=== PATIENT | male | born 1940 | race Two or more races ===

== ENCOUNTER 2021-10-10 14:56 | Inpatient (IN) | payer MEDICARE ==
[~2021-10-10] VITALS: Ht 170.2 cm; Wt 58.5 kg
--- NOTE | 2021-10-10 15:30 | NUR ---
GPS/RN RECEIVED PT FROM [facility] ON 5150 FOR GD. REPORTEDLY REFUSED TO EAT AT FACILITY . AMBULATORY, VSS. NO ACUTE DISTRESS NOTED. REFUSED TO SIGN CONSENTS. ON FACE TO FACE ASSESSMENT NO SI OR HI REPORTED, HOWEVER PT IS PARANOID REGARDING PSYCHOTROPIC MEDICATIONS. ADMITTING ORDERS FROM [facility] [employer] PROJECT LEAD RECEIVED AND CARRIED OUT. DR RAI MADE AWARE OF ADMISSION
[2021-10-10] MEDS ORDERED: PANT40TA49 PO (15:31)
[2021-10-10] MEDS ORDERED: ROSU20TA32 PO (15:31)
[2021-10-10 15:54] VITALS: BP 131/88
[2021-10-10 16:00] VITALS: BP 131/88
[2021-10-10] MEDS ORDERED: MAG HYDROX/AL HYDROX/SIMETH 30 ML UDC PO PRN (16:00)
[2021-10-10] MEDS ORDERED: ACETAMINOPHEN 325 MG TABLET PO PRN (16:00)
[2021-10-10] MEDS ORDERED: LORAZEPAM 0.5 MG TABLET PO PRN (16:00)
[2021-10-10] MEDS ORDERED: TEMAZEPAM 7.5 MG CAPSULE PO PRN (16:00)
[2021-10-10] MEDS ORDERED: MAGNESIUM HYDROXIDE 30 ML UDC PO PRN (16:00)
--- NOTE | 2021-10-10 16:01 | NUR ---
GPS/RN PT REFUSED TO SIGN CONSENTS/ADMITTING PAPERWORK. PT IS ALERT ORIENTED X3 PARANOID REGARDING MEDICATIONS.
--- NOTE | 2021-10-10 17:52 | NUR ---
RN-NOTES VALERIO AGUAYO ( PSYCHIATRIST ) MADE AWARE OF PATIENT ADMISSION AND DR. RAI ( PLANER OFF BEARER) SEEN THE PATIENT IN THE UNIT.
[2021-10-10 19:52] VITALS: BP 138/89
[2021-10-10 20:31] VITALS: BP 138/89
[2021-10-10] MEDS: ATORVASTATIN 40 MG TABLET PO SCH (21:53)
--- NOTE | 2021-10-10 21:53 | NUR ---
GPS RN NOTE: MEDICATION REFUSAL PATIENT REFUSED LIPITOR 80 MG SCHEDULED X 3 DESPITE OF RISKS AND BENEFITS EXPLANATIONS. PATIENT IS SUSPICIOUS AND DOES NOT WANT TO TAKE ANY MEDICINE.
[2021-10-11 07:14] LABS: ALBUMIN 3.3 g/dL (3.4-5.0); BILIRUBIN,DIRECT 0.2 mg/dL (0.0-0.2); BILIRUBIN,TOTAL 0.9 mg/dL (0.2-1.0); TOTAL PROTEIN, SERUM 6.4 g/dL (6.4-8.2)
[2021-10-11 07:20] LABS: ALBUMIN 3.3 g/dL (3.4-5.0); BILIRUBIN,TOTAL 0.9 mg/dL (0.2-1.0); POTASSIUM 3.8 mmol/L (3.5-5.1); TOTAL PROTEIN, SERUM 6.4 g/dL (6.4-8.2)
--- NOTE | 2021-10-11 07:55 | NUR ---
RN OPENING NOTES PATIENT AWAKE IN BED RESTING, A/O X 2-3, CONFUSED AT TIMES. NO S/S OF PAIN NOTED AT THIS TIME. ON ROOM AIR, NO DISTRESS OR SHORTNESS OF BREATH NOTED. AMBULATORY BUT UNSTEADY GAIT, FALL RISK, NEEDS 1 PERSON STAND BY ASSISTANCE DURING AMBULATION. FALL AND SAFETY MEASURES IN PLACE, BED ALARM ON, BED IN LOW AND LOCK POSITION, CALL LIGHT AND TABLE WITHIN EASY REACH, SIDE RAILS UP X2. WILL CONTINUE TO MONITOR FOR SAFETY AND BEHAVIOR.
[2021-10-11 08:00] VITALS: BP_SYST 107; BP_SYST 135; BP_DIAS 67; BP_DIAS 87
[2021-10-11 08:07] LABS: THYROID STIMULATING HORMONE 1.375 uIU/mL (0.358-3.74)
[2021-10-11] MEDS: ASPIRIN EC 81 MG TABLET.DR PO SCH (09:43)
[2021-10-11] MEDS: PANTOPRAZOLE 40 MG TABLET.DR PO SCH (09:43)
[2021-10-11] MEDS: BLOOD SUGAR DIAGNOSTIC 1 EACH STRIP IN SCH (16:44)
--- NOTE | 2021-10-11 18:53 | NUR ---
RN CLOSING NOTES PATIENT AWAKE IN BED RESTING, A/O X 2-3, CONFUSED AT TIMES. NO S/S OF PAIN NOTED AT THIS TIME. ON ROOM AIR, NO DISTRESS OR SHORTNESS OF BREATH NOTED. ALL SCHEDULE MEDICATIONS ADMINISTERED. ALL NEEDS ATTENDED AND ANTICIPATED. AMBULATORY BUT UNSTEADY GAIT, FALL RISK, NEEDS 1 PERSON STAND BY ASSISTANCE DURING AMBULATION. FALL AND SAFETY MEASURES IN PLACE, BED ALARM ON, BED IN LOW AND LOCK POSITION, CALL LIGHT AND TABLE WITHIN EASY REACH, SIDE RAILS UP X2. WILL ENDORSE TO SUPERVISOR CONCRETE [employer].
--- NOTE | 2021-10-11 19:30 | NUR ---
GPS RN NOTES PATIENT IN HIS ROOM RESTING COMFORTABLY. ALERT AND ORIENTED X2, NO S/S OF ACUTE DISTRESS NOTED. PATIENT IS CALM, COOPERATIVE TO CARE, DEPRESSED AND ISOLATIVE. ENCOURAGED PATIENT TO ATTEND IN GROUP ACTIVITIES. VERBALIZATION OF FEELINGS ENCOURAGED. DENIES SI/HI/AVH AT THIS TIME. SAFETY PRECAUTIONS IN PLACE. WILL CONTINUE TO MONITOR Q15MIN ROUNDS FOR SAFETY AND BEHAVIOR.
[2021-10-11 20:27] VITALS: BP 120/90
[2021-10-11] MEDS: ATORVASTATIN 40 MG TABLET PO SCH (21:19)
[2021-10-12 08:00] VITALS: BP 125/83
[2021-10-12] MEDS: ESCITALOPRAM OXALATE (10 MG) 10 MG TABLET PO SCH (08:05)
[2021-10-12] MEDS: ASPIRIN EC 81 MG TABLET.DR PO SCH (08:05)
[2021-10-12] MEDS: PANTOPRAZOLE 40 MG TABLET.DR PO SCH (08:05)
[2021-10-12] MEDS: BLOOD SUGAR DIAGNOSTIC 1 EACH STRIP IN SCH (09:47)
--- NOTE | 2021-10-12 10:48 | NUR ---
TATO Initial Discharge Plan: Pt currently resides at [address] [facility] [address] [place] [id number]. Pt stated that he would want to go to a nursing facility. Pt does not have any supportive contact at this time. TATO will work with the MD and treatment team to help coordinate appropriate discharge.
--- NOTE | 2021-10-12 10:48 | NUR ---
SW Admit Source: Pt placed on a 5150 hold for GD. Pt was not eating or taking medications at home for a week. Pt currently resides at [address] [place] [address]. Pt stated that he would want to go to a nursing facility. Pt does not have any supportive contact at this time.
--- NOTE | 2021-10-12 14:38 | NUR ---
Coordination of Care: Wilfrido ([phone]) and Samantha ([phone]) family preservation caseworker who are involved in patient's care and would want to be notified. they stated pt is currently residing at a Independent Living apartment building but does not have the appropriate care at home. They stated that they need to apply [facility] caregiver for pt before pt returns back home. They stated pt would need a nursing facility before pt would transition back home.
--- NOTE | 2021-10-12 15:10 | NUR ---
Individual Counseling: SW met with pt. bedside. The pt. is alert & oriented x 3 with depressed mood & fat affect. The pt. expressed feelings of sadness, loneliness. SW explored patient's support system. Pt. stated he only has one family member who lives far away and has not spoken to them recently. SW used motivational interviewing, validated patient's feeling and encouraged pt. to go out into activity room and socialize. Pt. stated "I will try to".
[2021-10-12 16:00] VITALS: BP 129/87
[2021-10-12 20:34] VITALS: BP 124/75
[2021-10-12] MEDS: ATORVASTATIN 40 MG TABLET PO SCH (21:31)
[2021-10-13 08:00] VITALS: BP 140/92
[2021-10-13] MEDS: PANTOPRAZOLE 40 MG TABLET.DR PO SCH (10:41)
[2021-10-13] MEDS: ESCITALOPRAM OXALATE (10 MG) 10 MG TABLET PO SCH (10:41)
[2021-10-13] MEDS: ASPIRIN EC 81 MG TABLET.DR PO SCH (10:41)
--- NOTE | 2021-10-13 11:21 | NUR ---
Paper Cone Machine Operator Samantha ([phone]) employment case manager contacted for update. SW updated on pt's status.
--- NOTE | 2021-10-13 11:31 | NUR ---
TATO SNF Referral: TATO sent clinicals to Halle valdivia from [facility] ([phone]) for placement option. TATO sent H & P, progress notes, and medication list.
[2021-10-13] MEDS: BLOOD SUGAR DIAGNOSTIC 1 EACH STRIP IN SCH (11:57)
[2021-10-13 16:00] VITALS: BP 109/67
--- NOTE | 2021-10-13 16:40 | NUR ---
KEEPING TO SELF,VERY ISOLATIVE.
--- NOTE | 2021-10-13 19:55 | NUR ---
GPS RN NOTES: RECEIVED PATIENT PACING IN ROOM. A/O X2. ANXIOUS, RESTLESS, PARANOID, DISORGANIZED, DISORIENTED. ASKING STAFF IF HE CAN LEAVE BECAUSE PEOPLE ARE AFTER HIM. REPEATEDLY COMING TO NURSE AND STATING HIS LIFE IS IN DANGER AND THAT HE WAS TOLD HE CAN LEAVE TONIGHT. PATIENT REORIENTED TO PRESENT SITUATION AND REASSURED OF HIS SAFETY. NO S/S OF ACUTE DISTRESS. RESPIRATION EVEN AND UNLABORED WITH EQUAL RISE AND FALL OF THE CHEST, ON ROOM AIR. OFFERED FLUID AND SNACKS TOLERATED. WILL CONTINUE TO MONITOR Q15 FOR MOOD, SAFETY AND BEHAVIOR.
[2021-10-13 20:00] VITALS: BP 120/79
[2021-10-13] MEDS: ATORVASTATIN 40 MG TABLET PO SCH (21:28)
--- NOTE | 2021-10-13 21:38 | NUR ---
GPS RN NOTES: PATIENT IS ANXIOUS, RESTLESS, PACING AND ASKING TO LEAVE. REFUSING REDIRECTION. ATIVAN 0.5MG GIVEN PO AT 2127. WILL CONTINUE TO MONITOR.
--- NOTE | 2021-10-14 07:10 | NUR ---
GPS RN CLOSING NOTES: PATIENT IS CURRENTLY SLEEPING. PATIENT SLEPT 7HR THIS SHIFT. NO S/S OF DISTRESS NOTED. RESPIRATION EVEN AND UNLABORED WITH EQUAL RISE AND FALL OF THE CHEST, ON ROOM AIR. ALL PATIENT CARE NEEDS HAVE BEEN MET ANTICIPATED. BED IN LOW LOCKED POSITION, SIDE RAILS UP X2 FOR SAFETY. CALL [place] WITHIN REACH. WILL CONTINUE TO MONITOR AND ENDORSE TO AM SHIFT.
[2021-10-14 08:00] VITALS: BP 121/81
[2021-10-14] MEDS: BLOOD SUGAR DIAGNOSTIC 1 EACH STRIP IN SCH (08:23)
[2021-10-14] MEDS: PANTOPRAZOLE 40 MG TABLET.DR PO SCH (08:24)
[2021-10-14] MEDS: ESCITALOPRAM OXALATE (10 MG) 10 MG TABLET PO SCH (08:24)
[2021-10-14] MEDS: ASPIRIN EC 81 MG TABLET.DR PO SCH (08:24)
--- NOTE | 2021-10-14 12:57 | NUR ---
RN-CO: PATIENT IS AWAKE, EATING. HE IS READING BOOKS, COMPLIANT WITH MEDICATIONS. UNKEMPT AND DISHEVELED. HE IS COOPERATIVE AND COMPLIANT WITH MEDICATIONS. SUSPICIOUS AT TIMES. HE NEEDS ASSISTANCE WITH Adl due TO PERIODS OF CONFUSION AND AGE.I WILL CONTINUE TO MONITOR.
[2021-10-14 16:00] VITALS: BP 150/92
--- NOTE | 2021-10-14 19:51 | NUR ---
GPS RN OPENING NOTES: RECEIVED PATIENT IN BED. A/O X2. FLAT AFFECT, WITHDRAWN, PASSIVE, GUARDED, DISORGANIZED, DISORIENTED, ENCOURAGED TO VERBALIZE FEELINGS. NO S/S OF ACUTE DISTRESS. RESPIRATION EVEN AND UNLABORED WITH EQUAL RISE AND FALL OF THE CHEST, ON ROOM AIR. OFFERED FLUID AND SNACKS TOLERATED. WILL CONTINUE TO MONITOR Q15 FOR MOOD, SAFETY AND BEHAVIOR.
[2021-10-14 20:00] VITALS: BP 142/91
[2021-10-14] MEDS: ATORVASTATIN 40 MG TABLET PO SCH (22:00)
--- NOTE | 2021-10-14 22:43 | NUR ---
GPS RN NOTES: PATIENT REFUSED 2200 LIPITOR. PER PATIENT "I DON'T WANT IT". WILL NOT GIVE REASON.
[2021-10-15 08:00] VITALS: BP 150/90
[2021-10-15] MEDS: BLOOD SUGAR DIAGNOSTIC 1 EACH STRIP IN SCH (08:10)
[2021-10-15] MEDS: ASPIRIN EC 81 MG TABLET.DR PO SCH ×2 (08:16→08:28)
[2021-10-15] MEDS: ESCITALOPRAM OXALATE (10 MG) 10 MG TABLET PO SCH ×2 (08:16→09:00)
[2021-10-15] MEDS: PANTOPRAZOLE 40 MG TABLET.DR PO SCH ×2 (08:16→08:28)
--- NOTE | 2021-10-15 09:25 | NUR ---
TATO SNF Contact: TATO Spoke with Halle valdivia from [facility] ([phone]) who stated pt is accepted.
--- NOTE | 2021-10-15 09:25 | NUR ---
TATO Family Contact: TATO received a call from patient's sister Vilma ([phone]) who stated that she lives in [facility] and is minimally involved in his case. She expressed that she believes that pt is not capable of taking care of himself. TATO discussed treatment and discharge plan.
--- NOTE | 2021-10-15 09:40 | NUR ---
RN- CO: PATIENT IS AWAKE, DENIED PAIN AND DISCOMFORTS. RESPIRATION EVEN AND UNLABORED. PATIENT REFUSED ALL HIS MEDICATIONS IN AM, EVEN WITH DISCUSSING BENEFITS. I WILL TRY AGAIN LATER TO ENCOURAGE HIM. HE IS ISOLATIVE AND DEPRESSED. HE USSUALLY STAYS ON BED AND READ BOOKS BUT HE IS UP FOR NEEDS.
--- NOTE | 2021-10-15 11:17 | NUR ---
APS production worker: SW received a call from APS case management director Park ([phone]) who stated that pt has an open case and that pt is unable to live at home alone, he does not have the appropriate resources at home and recommended a nursing facility.
[2021-10-15 16:00] VITALS: BP 115/87
[2021-10-15 20:00] VITALS: BP 140/96
[2021-10-15] MEDS: ATORVASTATIN 40 MG TABLET PO SCH ×2 (21:33→21:53)
--- NOTE | 2021-10-16 05:27 | NUR ---
RN - NOTES: ALERT ORX2 APPEARS DEPRESSED LYING IB BED ISOLATIVE OFFERED JUICE WATER SNACK HE REFUSED MY OFFERS HE REFUSED SLEEPING PILL AND LIPITOR LAST NIGHT OFFERED THE RESTORIL X2
[2021-10-16 08:00] VITALS: BP 126/94
--- NOTE | 2021-10-16 08:00 | NUR ---
Court Notification: SW contacted patient's sister Vilma ([phone]) to notify of 4216 hearing is today and left a voicemail.
[2021-10-16] MEDS: PANTOPRAZOLE 40 MG TABLET.DR PO SCH (09:00)
[2021-10-16] MEDS: ESCITALOPRAM OXALATE (10 MG) 10 MG TABLET PO SCH (09:00)
[2021-10-16] MEDS: ASPIRIN EC 81 MG TABLET.DR PO SCH (09:00)
--- NOTE | 2021-10-16 09:34 | NUR ---
Individual Counseling: SW met with pt. bedside. The pt. appeared with depressed mood and flat affect. Pt was blankly staring at this fiction and nonfiction writer prose and was not responding. SW attempted to encourage pt to participate and engage. Pt refused and was not responding to this fiction and nonfiction writer prose.
--- NOTE | 2021-10-16 09:36 | NUR ---
RN-NOTES PATIENT REFUSED ALL 0900AM MEDICATIONS DESPITE ENCOURAGEMENT AND EXPLANATIONS OF THE RISK AND BENEFITS. OFFERED X3
--- NOTE | 2021-10-16 14:00 | NUR ---
Court Hearing: Patient's court hearing was today and it was upheld for GD.
--- NOTE | 2021-10-16 14:37 | NUR ---
Pt. with probable cause hearing with the hearing referee, pts. advocate and hospital staff. Pt. did not attend the hearing and was upheld for the ground of GD.
--- NOTE | 2021-10-16 15:14 | NUR ---
RN-NOTES PATIENT IN BED INTERMITTENTLY SLEEPING WITH BREATHING EVEN AND NONLABORED EASILY AROUSED NO ACUTE DISTRESS NOTED. PATIENT NOTED WITH GUARDED,DEPRESSED MOOD,ENCOURAGED TO VERBALIZE FEELINGS AND CONCERN TO THE STAFF AND ATTEND GROUPS BUT PATIENT REFUSED TO TALK,PREFERS TO STAY IN HIS ROOM SLEEPING. ALL NEEDS ATTENDED AND ANTICIPATED. WILL CONT. MONITORING FOR SAFETY AND BEHAVIOR. WILL ENDORSE TO INCOMING SHIFT FOR CONTINUITY OF CARE.
[2021-10-16 16:00] VITALS: BP 119/88
--- NOTE | 2021-10-16 17:54 | NUR ---
RN-NOTES PATIENT REFUSED TO EAT BUT ABLE TO DRINK FLUID THIS SHIFT DESPITE ENCOURAGEMENT AND EXPLANATIONS OF THE RISK AND BENEFITS .FOOD WAS OFFERED X3
[2021-10-16 20:00] VITALS: BP 123/88
[2021-10-16] MEDS: ATORVASTATIN 40 MG TABLET PO SCH (22:00)
[2021-10-17 07:23] LABS: BASOPHILS % (AUTO) 0.3 % (0.0-2.0); EOSINOPHILS % (AUTO) 0.1 % (0.0-6.0); HEMATOCRIT 53 % (39-51); HEMOGLOBIN 17.8 g/dL (13.5-17.5); LYMPHOCYTES % (AUTO) 15.3 % (20.0-44.0); MEAN CORPUSCULAR HGB CONC 34 g/dl (31.0-36.0); MEAN CORPUSCULAR VOLUME 92 fL (80-96); MONOCYTES # (AUTO) 1.2 K/uL (0.1-1.30); MONOCYTES % (AUTO) 9.5 % (2.0-12.0); NEUTROPHILS # (AUTO) 9.6 K/uL (1.8-8.9); NEUTROPHILS % (AUTO) 74.8 % (43.0-81.0); PLATELET COUNT (AUTO) 238 K/uL (150-450); RED BLOOD CELL COUNT(AUTO) 5.74 MIL/uL (4.5-6.0); WHITE BLOOD COUNT (AUTO) 12.8 K/uL (4.3-11.0)
[2021-10-17 07:34] LABS: CALCIUM, SERUM 9.7 mg/dL (8.5-10.1); MAGNESIUM 2.2 mg/dL (1.8-2.4); PHOSPHORUS 4.1 mg/dL (2.5-4.9); POTASSIUM 3.9 mmol/L (3.5-5.1)
[2021-10-17 08:00] VITALS: BP 118/89
[2021-10-17] MEDS: ENSURE ENLIVE CHOC 237 ML CAN PO SCH ×2 (08:00→17:00)
[2021-10-17] MEDS: PANTOPRAZOLE 40 MG TABLET.DR PO SCH (09:00)
[2021-10-17] MEDS: ASPIRIN EC 81 MG TABLET.DR PO SCH (09:00)
[2021-10-17] MEDS: ESCITALOPRAM OXALATE (10 MG) 10 MG TABLET PO SCH (09:00)
--- NOTE | 2021-10-17 09:46 | NUR ---
RN-NOTES PATIENT REFUSED TO EAT BREAKFAST DESPITE ENCOURAGEMENT .ALL 0900AM MEDICATIONS WAS ALSO REFUSED DESPITE ENCOURAGEMENT AND EXPLANATIONS OF THE RISK AND BENEFITS. OFFERED X3
[2021-10-17] MEDS: VENLAFAXINE 37.5 MG TABLET PO SCH (10:30)
--- NOTE | 2021-10-17 10:45 | NUR ---
RN-NOTES PATIENT REFUSED EFFEXOR 3.75MG P.O DESPITE DR. RAMOS EXPLAINED TO THE PATIENT THE RISK AND BENEFITS. EDGE GLUER AND THE CHARGE NURSE DID ENCOURAGED TO COMPLY WITH THE MEDICATIONS AND TREATMENT BUT PATIENT STILL REFUSED. OFFERED X3
--- NOTE | 2021-10-17 12:38 | NUR ---
RN-CO: PATIENT'S RIGHTS HANDBOOK WAS GIVEN TO THE PATIENT, DISCUSSED AND ENCOURAGED TO ASK QUESTIONS.
--- NOTE | 2021-10-17 14:13 | NUR ---
RN-NOTES PATIENT IN BED INTERMITTENTLY SLEEPING WITH BREATHING EVEN AND NONLABORED EASILY AROUSED NO ACUTE DISTRESS NOTED.A/O X3,GUARDED ,QUIET.MINIMAL INTERACTIONS WITH THE STAFF. NON COMPLIANT WITH MEDICATIONS DESPITE ENCOURAGEMENT AND EXPLANATIONS RISK AND BENEFITS. STILL REFUSED TO EAT, DID DRINK WATER.WILL CONT. TO ENCOURAGED TO EAT AND DRINK. NEEDS MINIMAL ASSIST WITH ADL'S.ALL NEEDS ATTENDED AND ANTICIPATED. Q15 MINUTES MONITORING FOR SAFETY AND BEHAVIOR. WILL ENDORSE TO INCOMING SHIFT.
[2021-10-17 16:00] VITALS: BP 101/66
--- NOTE | 2021-10-17 19:03 | NUR ---
RN-NOTES T.O ORDER FROM DR. CORDOVA OF IV NS O.9% 1 LITER ONCE AND UA . NOTED AND CARRIED OUT.
--- NOTE | 2021-10-17 19:18 | NUR ---
RN-NOTES IV LINE ON RIGHT FA JUAN J 22 STARTED BY THE CHARGE NURSE WITH GOOD RETURN AND PATIENT TOLERATED WELL. WILL ENDORSE TO INCOMING NURSE FOR BEHAVIOR AND SAFETY MONITORING AND CONTINUITY OF CARE.
--- NOTE | 2021-10-17 19:25 | NUR ---
GPS RN NOTE IVF NS AT 125 ML/HR STARTED AT THIS TIME ORDERED BY MD, PATIENT IS TOLERATING THE IVF WELL. NO ACUTE DISTRESS NOTED. WILL CONTINUE TO MONITOR THE PATIENT CLOSELY FOR ANY CHANGE OF CONDITION.
[2021-10-17] MEDS ORDERED: IV NS 0.9% 1,000 ML IV ONE (19:30)
[2021-10-17 20:29] VITALS: BP 131/85
[2021-10-17] MEDS: ATORVASTATIN 40 MG TABLET PO SCH (21:56)
[2021-10-17] MEDS: MIRTAZAPINE 15 MG TABLET PO SCH (21:57)
--- NOTE | 2021-10-17 21:58 | NUR ---
RN NOTES: PT. REFUSED IMPLEMENTATION SPECIALIST PAYROLL SCHEDULE PO MEDICATIONS , LIPITOR AND REMERON REFUSED , ENCOURAGED X3 RISKS AND BENEFITS EXPLINED ,PT. STILL REFUSED,
--- NOTE | 2021-10-17 22:26 | NUR ---
RN NOTES: MEDICATION LIPITOR AND REMERON RETURNED BACK TO [employer], LIPITOR RETURNED 2 TABS IN [employer]oler[employer] , BUT BY ACCIDENTLY PRESS 1 IN [employer] , AND REMERON I TAB RETUNED TO [employer].
--- NOTE | 2021-10-18 | NUR ---
RN NOTES: COLLECTED URINE SPECIMEN AND SEND TO LAB.
[2021-10-18 00:31] LABS: BILIRUBIN,URINE SMALL (NEGATIVE); COLOR,URINE YELLOW (YELLOW); LEUKOCYTE ESTERASE ,URINE NEGATIVE (NEGATIVE); NITRITE, URINE NEGATIVE (NEGATIVE); PROTEIN,URINE NEGATIVE (NEGATIVE); UGLUCOSE NEGATIVE (NEGATIVE)
--- NOTE | 2021-10-18 03:33 | NUR ---
RN NOTE IVF NS AT 125 ML/HR 1,000 ML INFUSED AT THIS TIME ORDERED BY MD, PATIENT IS TOLERATING THE IVF WELL. NO ACUTE DISTRESS NOTED.
[2021-10-18 06:37] LABS: RBC,URINE 0-2 /HPF (0-2); WBC,URINE NONE SEEN /HPF (0-3)
[2021-10-18 06:38] LABS: BACTERIA,URINE Few /HPF (None Seen); SQUAMOUS EPITHELIAL CELL,UR None Seen /HPF (None Seen); URINE AMORPHOUS URATE Many /HPF (None Seen)
[2021-10-18 08:00] VITALS: BP 120/84
[2021-10-18] MEDS: ENSURE ENLIVE CHOC 237 ML CAN PO SCH ×2 (08:00→17:00)
[2021-10-18] MEDS: VENLAFAXINE 37.5 MG TABLET PO SCH (09:00)
[2021-10-18] MEDS: PANTOPRAZOLE 40 MG TABLET.DR PO SCH (09:00)
[2021-10-18] MEDS: ASPIRIN EC 81 MG TABLET.DR PO SCH (09:00)
[2021-10-18 16:00] VITALS: BP 130/88
--- NOTE | 2021-10-18 19:35 | NUR ---
RN NOTES RECEIVED PATIENT AWAKE ON BED, A/OX3, CALM, NOTIN DSITRESS, SAFETY MEASURES APPLIED, WILL CONTINUE TO MONITOR
[2021-10-18 19:53] VITALS: BP 126/84
[2021-10-18 19:54] VITALS: BP 126/84
[2021-10-18] MEDS: ATORVASTATIN 40 MG TABLET PO SCH (22:13)
[2021-10-18] MEDS: MIRTAZAPINE 15 MG TABLET PO SCH (22:14)
--- NOTE | 2021-10-19 06:43 | NUR ---
RN NOTES SLEEPING BUT AROUSABLE, MORNING CARE RENDERED, SAFETY MEASURES APPLIED PT. NEEDS ATTENDED
[2021-10-19 08:00] VITALS: BP 112/66
--- NOTE | 2021-10-19 08:00 | NUR ---
Court Notification: TATO contacted patient's sister Vilma ([phone]) to notify of 9900 hearing is today and left a voicemail. Addendum: 10/19/21 at 0802 by TATO COOK Wrong information.
[2021-10-19] MEDS: PANTOPRAZOLE 40 MG TABLET.DR PO SCH (08:32)
[2021-10-19] MEDS: ENSURE ENLIVE CHOC 237 ML CAN PO SCH ×2 (08:32→16:45)
[2021-10-19] MEDS: ASPIRIN EC 81 MG TABLET.DR PO SCH (08:32)
[2021-10-19] MEDS: VENLAFAXINE 37.5 MG TABLET PO SCH (08:33)
--- NOTE | 2021-10-19 11:05 | NUR ---
TATO Note: SW spoke with patient and explained that he is accepted at [facility]. He was agreeable of going to a facility to continue his treatment, he is afraid of going back home.
--- NOTE | 2021-10-19 11:06 | NUR ---
Adjunct Phlebotomy Instructor TATO contacted pt's case briefer Samantha ([phone]) and notified pt is accepted at [facility] and he was agreeable of this.
--- NOTE | 2021-10-19 11:08 | NUR ---
TATO Family Contact: SW contacted pt's sister Vilma ([phone]) and left a detailed voicemail that pt will be going to a nursing facility called [facility] to continue his treatment.
--- NOTE | 2021-10-19 15:50 | NUR ---
GPS RN NOTE: DR. ODONNELL NOTIFIED OF PATIENT CONDITION , PATIENT NOT EATING AND DRINKING HAS HEPLOCK ON HIS RIGHT ARM PER MD LEAVE HEPLOCK UNTIL TOMORROW LABS ORDERED FOR TOMORROW.
[2021-10-19 16:00] VITALS: BP 128/88
[2021-10-19 19:59] VITALS: BP 120/87
[2021-10-19] MEDS: ATORVASTATIN 40 MG TABLET PO SCH (21:31)
[2021-10-19] MEDS: MIRTAZAPINE 15 MG TABLET PO SCH (21:31)
[2021-10-20 07:05] LABS: BASOPHILS # (AUTO) 0.1 K/uL (0.0-0.2); BASOPHILS % (AUTO) 0.4 % (0.0-2.0); EOSINOPHILS % (AUTO) 0.3 % (0.0-6.0); HEMATOCRIT 56 % (39-51); HEMOGLOBIN 18.4 g/dL (13.5-17.5); LYMPHOCYTES # (AUTO) 2.2 K/uL (0.8-4.8); LYMPHOCYTES % (AUTO) 18.1 % (20.0-44.0); MEAN CORPUSCULAR HGB CONC 33 g/dl (31.0-36.0); MEAN CORPUSCULAR VOLUME 93 fL (80-96); MONOCYTES # (AUTO) 1.3 K/uL (0.1-1.30); MONOCYTES % (AUTO) 10.7 % (2.0-12.0); NEUTROPHILS # (AUTO) 8.8 K/uL (1.8-8.9); NEUTROPHILS % (AUTO) 70.5 % (43.0-81.0); PLATELET COUNT (AUTO) 196 K/uL (150-450); RED BLOOD CELL COUNT(AUTO) 5.99 MIL/uL (4.5-6.0); WHITE BLOOD COUNT (AUTO) 12.4 K/uL (4.3-11.0)
[2021-10-20 07:31] LABS: ALBUMIN 2.8 g/dL (3.4-5.0); BILIRUBIN,TOTAL 0.7 mg/dL (0.2-1.0); CALCIUM, SERUM 9.5 mg/dL (8.5-10.1); CREATININE 1.2 mg/dL (0.6-1.3); MAGNESIUM 2.3 mg/dL (1.8-2.4); PHOSPHORUS 3.6 mg/dL (2.5-4.9); POTASSIUM 3.8 mmol/L (3.5-5.1); TOTAL PROTEIN, SERUM 6.8 g/dL (6.4-8.2)
[2021-10-20 08:00] VITALS: BP 118/80
[2021-10-20] MEDS: ENSURE ENLIVE CHOC 237 ML CAN PO SCH (08:00)
--- NOTE | 2021-10-20 08:27 | NUR ---
Transfer Note: Patient will be transferred to medical floor due to poor oral intake. Dr. Griffith will continue the hold. Patient will be discharged to halfway facility [facility] [address] [facility], [place] [address]; ).Patients sister Vilma ([phone]) is notified. Pts case workers Wilfrido ([phone]) and Samantha ([phone]) is notified. Patient will continue to follow-up with (Psychiatrist) Dr. Griffith [address] [facility] [address], [place] [address]; ([phone]) and (Resource Program Teacher) Dr. Medina [address] [facility] [address], [place] [address]; ([phone]).
--- NOTE | 2021-10-20 08:29 | NUR ---
Family Contact and tent worker Contact: Patients sister Vilma ([phone]) is notified and left a detailed voicemail that pt will be transferred to medical floor. Pts rn field case manager Samantha ([phone]) is notified left a detailed voicemail that pt will be transferred to medical floor.
[2021-10-20] MEDS: ASPIRIN EC 81 MG TABLET.DR PO SCH (08:40)
[2021-10-20] MEDS: PANTOPRAZOLE 40 MG TABLET.DR PO SCH (08:40)
[2021-10-20] MEDS: VENLAFAXINE 37.5 MG TABLET PO SCH (08:40)
--- NOTE | 2021-10-20 09:00 | NUR ---
KETTLE COOK IN WELL DR. CHRISTIAN AND DUE TO POOR INTAKE AND WEAKNESS,DC NOT TO HAPPEN TODAY,TO BE TRANSFERRED TO [facility].
--- NOTE | 2021-10-20 10:59 | NUR ---
RN NOTE- SPOKE W BARREL RAISER 3W . WILL TRANSFER GPS OVERFLOW TO 309 AT 1400. 1:1 SITTER ALREADY STATIONED IN ROOM. 5250 HOLD TO STAY.
--- NOTE | 2021-10-20 14:20 | NUR ---
RN NOTE- PT DC TO MEDICAL FLOOR AT THIS TIME. VS STABLE. REPORT GIVEN
--- NOTE | 2021-10-20 14:30 | NUR ---
transferred via albert chair to med surg. floor.now to be readmitted and on 9380 hold.pt. with sureshter.report given to allen baer.original hold to new chart.belongings sent with pt.
[2021-10-20] MEDS ORDERED: LORA-259 PO (14:51)
[2021-10-20] MEDS ORDERED: ASPI-1420 PO (14:51)
[2021-10-20] MEDS ORDERED: MIRT-90 PO (14:51)
[2021-10-20] MEDS ORDERED: MAG30ORA PO (14:51)
[2021-10-20] MEDS ORDERED: TEMA15CA PO (14:51)
[2021-10-20] MEDS ORDERED: VENL25TA4 PO (14:51)
[2021-10-20] MEDS ORDERED: ATOR40TA PO (14:51)
[2021-10-20] MEDS ORDERED: LACT-246 PO (14:51)
[2021-10-20] MEDS ORDERED: ACET-868 PO (14:51)
== END 2021-10-20 14:20 | disposition short-term general hospital (02) | DRG 881 ==
LOC: GPS 14:56
PROVIDERS: ADMIT Nurse Practitioner Psychiatric/Mental Health; ATTEND Student in an Organized Health Care Education/Training Program
DX: F32.A Depression, unspecified (principal); E44.1 Mild protein-calorie malnutrition; E87.0 Hyperosmolality and hypernatremia; E86.0 Dehydration; I10 Essential (primary) hypertension; I25.10 Atherosclerotic heart disease of native coronary artery without angina pectoris; D72.829 Elevated white blood cell count, unspecified; E78.5 Hyperlipidemia, unspecified; E88.09 Other disorders of plasma-protein metabolism, not elsewhere classified; F41.9 Anxiety disorder, unspecified; Z59.00 Homelessness unspecified; Z95.5 Presence of coronary angioplasty implant and graft; Z68.20 Body mass index [BMI] 20.0-20.9, adult; R74.01 Elevation of levels of liver transaminase levels; Z20.822 Contact with and (suspected) exposure to COVID-19
CPT/HCPCS: 36415; 80048-TC; 80053-TC; 80061-TC; 80076-TC; 81001; 82962-TC; 83735-TC; 84100-TC; 84443-TC; 85025-TC; 87081-TC; J7030

== ENCOUNTER 2021-10-20 14:25 | Inpatient (IN) | payer MEDICARE ==
[~2021-10-20 14:25] MED LIST: PANT40TA49 PO; ROSU20TA32 PO
[2021-10-20] MEDS ORDERED: ACET-868 PO (14:51)
[2021-10-20] MEDS ORDERED: ASPI-1420 PO (14:51)
[2021-10-20] MEDS ORDERED: TEMA15CA PO (14:51)
[2021-10-20] MEDS ORDERED: MIRT-90 PO (14:51)
[2021-10-20] MEDS ORDERED: LACT-246 PO (14:51)
[2021-10-20] MEDS ORDERED: MAG30ORA PO (14:51)
[2021-10-20] MEDS ORDERED: ATOR40TA PO (14:51)
[2021-10-20] MEDS ORDERED: VENL25TA4 PO (14:51)
[2021-10-20] MEDS ORDERED: LORA-259 PO (14:51)
--- NOTE | 2021-10-20 14:55 | NUR ---
RN NOTE PATIENT RECEIVED FROM GPS, REPORT RECEIVED FROM KATIE PERKINS. PATIENT ON ROOM AIR WITH NO SIGNS OF LABORED BREATHING AT THIS TIME. PATIENT A&OX1, QUIET, AVOIDING EYE CONTACT. RIGHT FOREARM 22G SL IN PLACE, FLUSHING AND PATENT WITH NO SIGNS OF INFILTRATION. PATIENT ON A 5250 HOLD, PAPERWORK RECEIVED AND PLACED IN CHART. NO SIGNS OF ACUTE DISTRESS NOTED AT THIS TIME. BED LOCKED AND IN LOWEST POSITION, CALL LIGHT WITHIN REACH, 3 SIDE RAILS UP. GABBI [place]LANDO AT BEDSIDE.
[2021-10-20 14:59] VITALS: BP 119/78
--- NOTE | 2021-10-20 15:51 | NUR ---
RN NOTE PATIENT REFUSING TO TURN ON THE SIDE FOR SKIN INSPECTION ON HIS BACK, BUTTOCKS AND BACK OF THE LEGS. ONLY ABLE TO ASSESS ARMS AT THIS TIME PER PT REFUSAL. WILL TRY AGAIN LATER.
[2021-10-20 16:00] VITALS: BP 119/78
[2021-10-20] MEDS: IV LR 1000 ML 1,000 ML IV PRN (17:28)
[2021-10-20] MEDS: MEGESTROL ACETATE SUSP 400 MG/10 ML UDC PO SCH (17:30)
[2021-10-20] MEDS ORDERED: LORAZEPAM 0.5 MG TABLET PO PRN (17:30)
[2021-10-20] MEDS ORDERED: MAG HYDROX/AL HYDROX/SIMETH 30 ML UDC PO PRN (17:30)
[2021-10-20] MEDS ORDERED: ACETAMINOPHEN 325 MG TABLET PO PRN ×2 (17:30)
[2021-10-20] MEDS ORDERED: Z GUARD REMEDY 4 OZ OINT TP PRN (17:30)
--- NOTE | 2021-10-20 17:57 | NUR ---
RN NOTE PT REFUSING MEDICATION AT THIS TIME. PT AGREED ON IV FLUID, LR AT 85CC/HR INITIATED PER ORDER.
--- NOTE | 2021-10-20 18:53 | NUR ---
RN NOTE PATIENT REMAINS IN BED, RESTING, QUIET, REFUSING MEDICATION BUT OKAY WITH IV FLUID AT THIS TIME. RIGHT FA 22G IV IN PLACE RUNNING LR AT 85CC/HR. PT ON RA WITH NO SIGNS OF LABORED BREATHING AT THIS TIME. NO SIGNS OF ACUTE DISTRESS NOTED. BED LOCKED AND IN LOWEST POSITION, CALL LIGHT WITHIN REACH, 3 SIDE RAILS UP. SITTER AT BEDSIDE. WILL ENDORSE TO FLOORING MACHINE OPERATOR NURSE.
--- NOTE | 2021-10-20 19:30 | NUR ---
MS RN OPENING NOTE RECEIVED PT RESTING IN BED, EASILY AROUSABLE. A/O X 1-2. PT STABLE ON ROOM AIR. NO SOB OR S/S OF RESPIRATORY DISTRESS. BREATHING EVEN AND UNLABORED. IV ACCESS RFA 22 GAUGE RUNNING LR @ 85 ML/HR. SAFETY PRECAUTIONS IN PLACE. BED IN LOWEST LOCKED POSITION, HOB ELEVATED, SIDE RAILS UP X2, CALL LIGHT AND TABLE WITHIN REACH, AND SITTER AT BEDSIDE. ALL NEEDS MET AT THIS TIME.
[2021-10-20] MEDS: ENOXAPARIN SODIUM 40 MG/0.4 ML DISP.SYRIN SQ SCH (20:30)
[2021-10-20] MEDS: ATORVASTATIN 40 MG TABLET PO SCH (21:49)
[2021-10-20] MEDS: MIRTAZAPINE 15 MG TABLET PO SCH (21:49)
[2021-10-20] MEDS ORDERED: TEMAZEPAM 7.5 MG CAPSULE PO PRN (22:00)
[2021-10-21] MEDS: IV LR 1000 ML 1,000 ML IV PRN (04:45)
--- NOTE | 2021-10-21 06:38 | NUR ---
MS RN CLOSING NOTE PT RESTING IN BED, EASILY AROUSABLE. A/O X 1-2. PT STABLE ON ROOM AIR. NO SOB OR S/S OF RESPIRATORY DISTRESS. BREATHING EVEN AND UNLABORED. IV ACCESS RFA 22 GAUGE RUNNING LR @ 85 ML/HR. SAFETY PRECAUTIONS IN PLACE AT ALL TIMES. BED IN LOWEST LOCKED POSITION, HOB ELEVATED, SIDE RAILS UP X2, CALL LIGHT AND TABLE WITHIN REACH, AND SITTER AT BEDSIDE. ALL NEEDS MET AT THIS TIME AND WILL ENDORSE TO ONCOMING NURSE FOR MARCUS.
[2021-10-21 06:44] LABS: BASOPHILS # (AUTO) 0.1 K/uL (0.0-0.2); BASOPHILS % (AUTO) 0.6 % (0.0-2.0); EOSINOPHILS % (AUTO) 0.2 % (0.0-6.0); HEMATOCRIT 54 % (39-51); HEMOGLOBIN 17.9 g/dL (13.5-17.5); LYMPHOCYTES # (AUTO) 2.1 K/uL (0.8-4.8); LYMPHOCYTES % (AUTO) 20.9 % (20.0-44.0); MEAN CORPUSCULAR HGB CONC 33 g/dl (31.0-36.0); MEAN CORPUSCULAR VOLUME 93 fL (80-96); MONOCYTES # (AUTO) 0.8 K/uL (0.1-1.30); MONOCYTES % (AUTO) 8.5 % (2.0-12.0); NEUTROPHILS % (AUTO) 69.8 % (43.0-81.0); PLATELET COUNT (AUTO) 195 K/uL (150-450); RED BLOOD CELL COUNT(AUTO) 5.83 MIL/uL (4.5-6.0)
--- NOTE | 2021-10-21 07:15 | NUR ---
RN OPENING NOTES RECEIVED PATIENT RESTING IN BED, EASILY AROUSED. NO SIGNS OF ACUTE DISTRESS NOTED. ON ROOM AIR, TOLERATING WELL, NO SOB NOTED, BREATHING EVEN AND UNLABORED. NOTED WITH IV ACCESS ON RIGHT FOREARM #22G, INTACT AND PATENT WITH IVF OF LR @85 ML/HR INFUSING WELL. DENIES ANY PAIN AT THIS TIME. SAFETY MEASURE IN PLACE, BED IN LOWEST AND LOCKED POSITION, SR UP, CALL LIGHT PLACED WITHIN EASY REACH. WILL CONTINUE TO MONITOR.
[2021-10-21 07:23] LABS: CALCIUM, SERUM 9.4 mg/dL (8.5-10.1); CREATININE 1.2 mg/dL (0.6-1.3); MAGNESIUM 2.3 mg/dL (1.8-2.4); PHOSPHORUS 4.3 mg/dL (2.5-4.9); POTASSIUM 3.8 mmol/L (3.5-5.1)
[2021-10-21] MEDS ORDERED: PANTOPRAZOLE 40 MG TABLET.DR PO SCH (07:30)
--- NOTE | 2021-10-21 08:15 | NUR ---
Transfer Note: Patient will be transferred to medical floor due to poor oral intake. Dr. Griffith will continue the hold. Patient will be discharged to intermediate facility [facility] [address] [facility], [place] [address]; ).Patients sister Vilma ([phone]) is notified. Pts case workers Wilfrido ([phone]) and Samantha ([phone]) is notified. Patient will continue to follow-up with (Psychiatrist) Dr. Griffith [address] [facility] [address], [place] [address]; ([phone]) and (Procedures Nurse) Dr. Medina [address] [facility] [address], [place] [address]; ([phone]).
[2021-10-21] MEDS: ASPIRIN EC 81 MG TABLET.DR PO SCH (08:19)
[2021-10-21] MEDS: PANTOPRAZOLE 40 MG TABLET.DR PO SCH (08:19)
[2021-10-21] MEDS: MEGESTROL ACETATE SUSP 400 MG/10 ML UDC PO SCH ×2 (08:19→17:09)
[2021-10-21] MEDS: VENLAFAXINE 25 MG TABLET PO SCH (08:19)
[2021-10-21] MEDS: ENSURE ENLIVE 237 ML LIQUID (VANILLA) PO SCH ×2 (09:00→17:00)
--- NOTE | 2021-10-21 10:44 | NUR ---
WOUND CARE CONSULT: PT PRESENTS VERY THIN AND BONY WITH SOME DISCOLORATION ON RT ARM, PRESENT ON ADMISSION. RECOMMENDATIONS MADE FOR SKIN PROTECTION. DISCUSSED WITH NURSING STAFF. MD IN AGREEMENT WITH PLAN OF CARE.
[2021-10-21] MEDS ORDERED: MEGESTROL ACETATE SUSP 400 MG/10 ML UDC PO SCH (12:00)
--- NOTE | 2021-10-21 12:00 | NUR ---
RN NOTES MEGESTROL 400MG/10 ML NOT GIVEN @1200 (DUPLICATE ORDER). MEDICATION ALREADY GIVEN @0900 ORDERED. PHARMACY MADE AWARE REGRADING DUPLICATE ORDER.
[2021-10-21] MEDS: IV D5W 1,000 ML IV SCH (12:11)
[2021-10-21 12:24] LABS: ALBUMIN 2.7 g/dL (3.4-5.0); BILIRUBIN,DIRECT 0.2 mg/dL (0.0-0.2); BILIRUBIN,TOTAL 0.7 mg/dL (0.2-1.0); TOTAL PROTEIN, SERUM 6.5 g/dL (6.4-8.2)
--- NOTE | 2021-10-21 18:44 | NUR ---
RN CLOSING NOTES PATIENT SLEEPING IN BED, EASILY AROUSED. NO SIGNS OF ACUTE DISTRESS NOTED. REMAINS ON ROOM AIR, NO SOB NOTED, BREATHING EVEN AND UNLABORED. IV ACCESS ON RIGHT FOREARM #22G, INTACT AND PATENT WITH IVF OF P3AOROR @ 70ML/HR, INFUSING WELL. PATIENT REFUSED ALL MEALS IN SPITE OF ENCOURAGEMENT, ALSO REFUSED ENSURE. BUT ABLE TO TAKE ALL MEDS WITH WATER. SAFETY MEASURE MAINTAINED, BED IN LOWEST AND LOCKED POSITION, SR UP, CALL LIGHT PLACED WITHIN EASY REACH. WILL ENDORSE TO NEXT SHIFT FOR MARCUS.
--- NOTE | 2021-10-21 19:15 | NUR ---
MS RN OPENING NOTES RECEIVED PATIENT LAYING AWAKE IN BED. A/O X 2-3. PATIENT WITH REGULAR AND UNLABORED BREATHING ON ROOM AIR, TOLERATED WELL. NO SIGNS AND SYMPTOMS OF DISTRESS NOTED AT THIS TIME. NO COMPLAINS OF PAIN OR DISCOMFORT AT THIS TIME. IV ACCESS RFA G #22 INFUSING D5W @ 70 ML/HR. IV ACCESS PATENT AND INTACT. SAFETY PRECAUTIONS ENFORCED WITH BED LOCKED AND AT LOWEST POSITION. SIDERAILS UP X2. CALL LIGHT WITHIN REACH AT ALL TIMES. WILL CONTINUE TO MONITOR PATIENT.
[2021-10-21] MEDS: ENOXAPARIN SODIUM 40 MG/0.4 ML DISP.SYRIN SQ SCH (19:43)
[2021-10-21 20:00] VITALS: BP 121/78
[2021-10-21] MEDS: MIRTAZAPINE 15 MG TABLET PO SCH (21:06)
[2021-10-21] MEDS: ATORVASTATIN 40 MG TABLET PO SCH (21:06)
[2021-10-22] MEDS: IV D5W 1,000 ML IV SCH ×2 (01:32→15:16)
--- NOTE | 2021-10-22 07:01 | NUR ---
MS RN CLOSING NOTES PATIENT SLEEPING ASLEEP EASILY AROUSABLE IN BED. A/O X 2-3. PATIENT WITH REGULAR AND UNLABORED BREATHING ON ROOM AIR, TOLERATED WELL. NO SIGNS AND SYMPTOMS OF DISTRESS NOTED AT THIS TIME. NO COMPLAINS OF PAIN OR DISCOMFORT AT THIS TIME. IV ACCESS RFA G #22 INFUSING D5W @ 70 ML/HR. IV ACCESS PATENT AND INTACT. SAFETY PRECAUTIONS ENFORCED WITH BED LOCKED AND AT LOWEST POSITION. SIDERAILS UP X2. CALL LIGHT WITHIN REACH AT ALL TIMES. WILL ENDORSE CONTINUITY OF CARE TO DAY SHIFT NURSE.
--- NOTE | 2021-10-22 07:39 | NUR ---
RN OPENING NOTES Patient seen comfortably lying in bed, breathing even and unlabored, no shortness of breath, no apparent distress noted, denies any pain or discomfort at this time, no grimacing. Call light left within reach, safety precautions in place, brakes locked, side rails up X 2, will monitor closely for any changes.
[2021-10-22 08:00] VITALS: BP 114/80
[2021-10-22] MEDS: PANTOPRAZOLE 40 MG TABLET.DR PO SCH (08:50)
[2021-10-22] MEDS: VENLAFAXINE 25 MG TABLET PO SCH (08:50)
[2021-10-22] MEDS: MEGESTROL ACETATE SUSP 400 MG/10 ML UDC PO SCH ×2 (08:50→18:17)
[2021-10-22] MEDS: ASPIRIN EC 81 MG TABLET.DR PO SCH (08:50)
[2021-10-22] MEDS: ENSURE ENLIVE 237 ML LIQUID (VANILLA) PO SCH ×3 (09:00→18:18)
[2021-10-22 16:00] VITALS: BP 121/78
--- NOTE | 2021-10-22 19:32 | NUR ---
RN CLOSING NOTES Patient lying in bed, no apparent distress noted, no shortness of breath, breathing even and unlabored, no dizziness, no palpitations, no chest pain, remained afebrile, denies any pain or discomfort. Due medications given per MD order, and tolerated well. Patient has an order for IV fluids (D5W at 70ml/hr) for hydration, peripheral IV line on his right forearm, intact, flushing well, covered with dry dressings, no swelling, no redness, no c/o pain or discomfort at site. Kept clean and dry, all needs attended, aspiration precautions observed at all times, safety precautions in place, frequent visual checks done, repositioning done, patient has a 1:1 sitter for safety, brakes locked, side rails up X 2, call light left within reach.
[2021-10-22 20:30] VITALS: BP 104/71
--- NOTE | 2021-10-22 20:36 | NUR ---
RN OPENING NOTES Patient lying in bed, no apparent distress noted, no shortness of breath, breathing even and unlabored, no dizziness, no palpitations, no chest pain, remained afebrile, denies any pain or discomfort Patient has an order for IV fluids (D5W at 70ml/hr) for hydration, peripheral IV line on his right forearm, intact, flushing well, covered with dry dressings, no swelling, no redness, no c/o pain or discomfort at site. Kept clean and dry, all needs attended, aspiration precautions observed at all times, safety precautions in place, frequent visual checks done, repositioning done, patient has a 1:1 sitter for safety, brakes locked, side rails up X 2, call light left within reach. will continue to monitor.
[2021-10-22] MEDS: ENOXAPARIN SODIUM 40 MG/0.4 ML DISP.SYRIN SQ SCH (21:01)
[2021-10-22] MEDS: ATORVASTATIN 40 MG TABLET PO SCH ×2 (21:06→21:07)
[2021-10-22] MEDS: MIRTAZAPINE 15 MG TABLET PO SCH ×2 (21:06→21:07)
[2021-10-23 04:43] LABS: ALANINE AMINOTRANSFERASE 68 U/L (12-78); ALBUMIN 2.2 g/dL (3.4-5.0); ALKALINE PHOSPHATASE 95 U/L (46-116); ASPARTATE AMINOTRANSFERASE 43 U/L (15-37); BILIRUBIN,TOTAL 0.6 mg/dL (0.2-1.0); CALCIUM, SERUM 8.5 mg/dL (8.5-10.1); CARBON DIOXIDE 25 mmol/L (21-32); CHLORIDE 114 mmol/L (98-107); CREATININE 1.1 mg/dL (0.6-1.3); GLUCOSE 123 mg/dL (74-106); POTASSIUM 3.1 mmol/L (3.5-5.1); SODIUM SERUM 147 mmol/L (136-145); TOTAL PROTEIN, SERUM 5.5 g/dL (6.4-8.2); UREA NITROGEN, BLOOD 34 mg/dL (7-18)
--- NOTE | 2021-10-23 05:27 | NUR ---
MS RN NOTES pt labs resulted noted potassium 3.1 reported to application security architect SAIDA MANZANO new order to give kcl 40 meq p.o x one. ordered noted and will be carried out. all needs attended to at this time. will contineu to monitor.
[2021-10-23] MEDS ORDERED: POTASSIUM CHLORIDE 20 MEQ TAB.PRT.SR PO ONE ×2 (05:30→09:00)
[2021-10-23] MEDS: IV D5W 1,000 ML IV SCH (07:01)
--- NOTE | 2021-10-23 07:43 | NUR ---
RN OPENING NOTES Patient seen comfortably lying in bed, breathing even and unlabored, no shortness of breath, no apparent distress noted, denies any pain or discomfort at this time, no grimacing. Call light left within reach, safety precautions in place, brakes locked, side rails up X 2.
[2021-10-23 08:00] VITALS: BP 102/68
[2021-10-23] MEDS: VENLAFAXINE 25 MG TABLET PO SCH (09:00)
[2021-10-23] MEDS: ASPIRIN EC 81 MG TABLET.DR PO SCH (09:00)
[2021-10-23] MEDS: PANTOPRAZOLE 40 MG TABLET.DR PO SCH (09:00)
[2021-10-23] MEDS: MEGESTROL ACETATE SUSP 400 MG/10 ML UDC PO SCH ×2 (09:00→17:16)
[2021-10-23] MEDS: ENSURE ENLIVE 237 ML LIQUID (VANILLA) PO SCH ×2 (09:01→17:26)
[2021-10-23 09:12] LABS: CREATININE 1.1 mg/dL (0.6-1.3); POTASSIUM 3.2 mmol/L (3.5-5.1)
[2021-10-23 16:00] VITALS: BP 110/66
[2021-10-23] MEDS: Potassium Chloride 20 MEQ in IV D5W 1,000 ML IV SCH ×2 (16:11→22:09)
--- NOTE | 2021-10-23 18:21 | NUR ---
RN CLOSING NOTES Patient lying in bed, respirations even and unlabored, no apparent distress noted, no shortness of breath, no dizziness, no palpitations, no chest pain, remained afebrile, denies any pain or discomfort. Due medications given per MD order, and tolerated well. Patient has peripheral IV line on his right forearm, intact, flushing well, covered with dry dressings, no swelling, no redness, no c/o pain or discomfort at site, patient also has an order for IV fluids (D5W + Potassium 20 meq at 100ml/hr) for hydration, Kept clean and dry, all needs attended, aspiration precautions observed at all times, safety precautions in place, frequent visual checks done, repositioning done, brakes locked, side rails up X 2, call light left within reach.
--- NOTE | 2021-10-23 19:30 | NUR ---
RN OPENING NOTES RECEIVED PT IN BED, AWAKE, WATCHING TV. AOx2-3. ON RA AND TOLERATING WELL. NO SOB NOTED. NO S/SX OF RESPIRATORY DISTRESS NOTED. IV ACCESS IN RFA #22G RUNNING D5W AND KCL 20 MEQ @ 100 ML/HR. SAFETY PRECAUTIONS IN PLACE: BED IN LOWEST, LOCKED POSITION, SIDERAILS UPx2, AND BRAKES ON. TABLE AND CALL LIGHT WITHIN REACH. SITTER ALSO AT BEDSIDE. WILL CONTINUE TO MONITOR.
[2021-10-23] MEDS: ONDANSETRON HCL/PF 4 MG/2 ML VIAL IVP PRN (19:51)
[2021-10-23] MEDS: ENOXAPARIN SODIUM 40 MG/0.4 ML DISP.SYRIN SQ SCH (19:53)
[2021-10-23 20:00] VITALS: BP 92/63
[2021-10-23] MEDS: ATORVASTATIN 40 MG TABLET PO SCH (22:09)
[2021-10-23] MEDS: MIRTAZAPINE 15 MG TABLET PO SCH (22:09)
[2021-10-24] MEDS: ONDANSETRON HCL/PF 4 MG/2 ML VIAL IVP PRN (05:53)
[2021-10-24 06:42] LABS: ALBUMIN 2.2 g/dL (3.4-5.0); BILIRUBIN,TOTAL 0.6 mg/dL (0.2-1.0); CALCIUM, SERUM 8.3 mg/dL (8.5-10.1); POTASSIUM 3.5 mmol/L (3.5-5.1); TOTAL PROTEIN, SERUM 5.4 g/dL (6.4-8.2)
--- NOTE | 2021-10-24 06:50 | NUR ---
RN CLOSING NOTES PT IN BED, ASLEEP, AWAKENS TO VERBAL STIMULI. AOx2-3, ABLE TO MAKE NEEDS KNOWN. ON RA AND TOLERATING WELL. NO SOB NOTED. NO S/SX OF RESPIRATORY DISTRESS NOTED. IV ACCESS IN RFA #22G RUNNING D5W AND KCL 20 MEQ @ 100 ML/HR. ALL NEEDS MET. ALL ORDERS CARRIED OUT. PT KEPT CLEAN AND DRY. SAFETY PRECAUTIONS IN PLACE: BED IN LOWEST, LOCKED POSITION, SIDERAILS UPx2, AND BRAKES ON. TABLE AND CALL LIGHT WITHIN REACH. SITTER AT BEDSIDE. WILL ENDORSE TO ONCOMING SHIFT FOR MARCUS.
--- NOTE | 2021-10-24 07:30 | NUR ---
RN NOTES IN BED RESTING. SITTER AT BEDSIDE. PATIENT ABLE TO BE AWAKENED, VERBALLY RESPONSIVE, NOT IN ACUTE DISTRESS. IVF INFUSING. SAFETY MEASURES IN PLACE. WILL CONTINUE TO MONITOR.
[2021-10-24] MEDS: Potassium Chloride 20 MEQ in IV D5W 1,000 ML IV SCH ×2 (07:53→18:05)
[2021-10-24] MEDS: ASPIRIN EC 81 MG TABLET.DR PO SCH (08:30)
[2021-10-24] MEDS: MEGESTROL ACETATE SUSP 400 MG/10 ML UDC PO SCH ×2 (08:30→16:32)
[2021-10-24] MEDS: ENSURE ENLIVE 237 ML LIQUID (VANILLA) PO SCH ×2 (08:30→16:32)
[2021-10-24] MEDS: PANTOPRAZOLE 40 MG TABLET.DR PO SCH (08:30)
[2021-10-24] MEDS: VENLAFAXINE 25 MG TABLET PO SCH (08:30)
--- NOTE | 2021-10-24 18:46 | NUR ---
RN NOTES CONTINUES W/ SITTER AT BEDSIDE. ABLE TO EAT MEALS DURING THE DAY. IVF CONTINUOUS. ASSISTED W/ BED MOBILITY AND TOILETING TOLERATED. SAFETY MEASURES MAINTAINED. WILL ENDORSE TO ELECTRIFICATION ADVISER RN FOR MARCUS.
[2021-10-24 20:00] VITALS: BP 90/59
[2021-10-24] MEDS: ENOXAPARIN SODIUM 40 MG/0.4 ML DISP.SYRIN SQ SCH (20:02)
[2021-10-24] MEDS: ATORVASTATIN 40 MG TABLET PO SCH (21:32)
[2021-10-24] MEDS: MIRTAZAPINE 15 MG TABLET PO SCH (21:33)
[2021-10-25] MEDS: Potassium Chloride 20 MEQ in IV D5W 1,000 ML IV SCH ×2 (03:46→13:37)
[2021-10-25 06:50] LABS: ALBUMIN 2.2 g/dL (3.4-5.0); BILIRUBIN,TOTAL 0.4 mg/dL (0.2-1.0); CALCIUM, SERUM 8.6 mg/dL (8.5-10.1); CREATININE 1.3 mg/dL (0.6-1.3); POTASSIUM 3.8 mmol/L (3.5-5.1); TOTAL PROTEIN, SERUM 5.5 g/dL (6.4-8.2)
--- NOTE | 2021-10-25 07:26 | NUR ---
RN CLOSING NOTES PT IN BED, ASLEEP, AWAKENS TO VERBAL STIMULI. AOx2-3. ON RA AND TOLERATING WELL. NO SOB NOTED. NO S/SX OF RESPIRATORY DISTRESS NOTED. IV ACCESS IN RFA #22G RUNNING D5W AND KCL 20 MEQ @ 100 ML/HR. ALL NEEDS MET. ALL ORDERS CARRIED OUT. PT KEPT CLEAN AND DRY. SITTER AT BEDSIDE. SAFETY PRECAUTIONS IN PLACE: BED IN LOWEST, LOCKED POSITION, SIDERAILS UPx2, AND BRAKES ON. TABLE AND CALL LIGHT WITHIN REACH. WILL ENDORSE TO ONCOMING SHIFT FOR MARCUS.
--- NOTE | 2021-10-25 07:55 | NUR ---
RN NOTES SITTER AT BEDSIDE W/ PATIENT. BREATHING EVEN AND UNLABORED. A/O X2, PERIODS OF CONFUSION, REORIENTED APPLICABLE. SAFETY MEASURES IN PLACE. WILL CONTINUE TO MONITOR.
[2021-10-25] MEDS: VENLAFAXINE 25 MG TABLET PO SCH (08:32)
[2021-10-25] MEDS: ASPIRIN EC 81 MG TABLET.DR PO SCH (08:32)
[2021-10-25] MEDS: MEGESTROL ACETATE SUSP 400 MG/10 ML UDC PO SCH ×2 (08:32→17:15)
[2021-10-25] MEDS: PANTOPRAZOLE 40 MG TABLET.DR PO SCH (08:32)
[2021-10-25] MEDS: ENSURE ENLIVE 237 ML LIQUID (VANILLA) PO SCH ×2 (08:33→17:15)
--- NOTE | 2021-10-25 08:53 | NUR ---
RN notes Pt is complaining of heart burn and requesting meds. Administered maalox 30ml/po/prn as ordered for heartburn per Pt request. Primary nurse is aware and informed. Will continue to monitor.
--- NOTE | 2021-10-25 14:53 | NUR ---
RN NOTES IV LINE INFILTRATED; NEW IV INSERTED ON RIGHT WRIST #20, INTACT AND PATENT.
--- NOTE | 2021-10-25 18:51 | NUR ---
RN NOTES IVF PAUSED AT THIS TIME PER PATIENT REQUEST. ABLE TO EAT AND DRINK DURING THE DAY W/ ENCOURAGEMENT AND ASSISTANCE FROM STAFF. SITTER AT BEDSIDE W/ PATIENT. DUE MEDS GIVEN. SAFETY MEASURES MAINTAINED. WILL ENDORSE TO RADIATION SAFETY OFFICER RN FOR MARCUS.
--- NOTE | 2021-10-25 19:34 | NUR ---
RN OPENING NOTES PT IN BED, ASLEEP, AWAKENS TO VERBAL STIMULI. A/O X2. ON RA AND TOLERATING WELL. NO SOB NOTED. NO S/SX OF RESPIRATORY DISTRESS NOTED. IV ACCESS IN RFA #22G RUNNING D5W AND KCL 20 MEQ @ 100 ML/HR. ALL NEEDS MET. ALL ORDERS CARRIED OUT. PT KEPT CLEAN AND DRY. SITTER AT BEDSIDE. SAFETY PRECAUTIONS IN PLACE: BED IN LOWEST, LOCKED POSITION, SIDERAILS UPx2, AND BRAKES ON. TABLE AND CALL LIGHT WITHIN REACH. WILL CONTINUE OT MONITOR.
[2021-10-25 20:00] VITALS: BP 103/54
[2021-10-25] MEDS: ATORVASTATIN 40 MG TABLET PO SCH (21:23)
[2021-10-25] MEDS: MIRTAZAPINE 15 MG TABLET PO SCH (21:24)
[2021-10-25] MEDS: ENOXAPARIN SODIUM 40 MG/0.4 ML DISP.SYRIN SQ SCH (21:25)
[2021-10-26] MEDS: Potassium Chloride 20 MEQ in IV D5W 1,000 ML IV SCH ×2 (01:21→13:08)
--- NOTE | 2021-10-26 07:02 | NUR ---
RN CLOSING NOTES PT IN BED, ASLEEP, AWAKENS TO VERBAL STIMULI. A/O X2. ON RA AND TOLERATING WELL. NO SOB NOTED. NO S/SX OF RESPIRATORY DISTRESS NOTED. IV ACCESS IN RFA #22G RUNNING D5W AND KCL 20 MEQ @ 100 ML/HR. ALL NEEDS MET. ALL ORDERS CARRIED OUT. PT KEPT CLEAN AND DRY. SITTER AT BEDSIDE. SAFETY PRECAUTIONS IN PLACE: BED IN LOWEST, LOCKED POSITION, SIDERAILS UPx2, AND BRAKES ON. TABLE AND CALL LIGHT WITHIN REACH. WILL ENDORSE CARE TO DAY SHIFT NURSE.
[2021-10-26 07:29] LABS: ALBUMIN 2.1 g/dL (3.4-5.0); BILIRUBIN,TOTAL 0.4 mg/dL (0.2-1.0); CALCIUM, SERUM 8.5 mg/dL (8.5-10.1); CREATININE 1.1 mg/dL (0.6-1.3); POTASSIUM 3.8 mmol/L (3.5-5.1); TOTAL PROTEIN, SERUM 5.4 g/dL (6.4-8.2)
--- NOTE | 2021-10-26 07:30 | NUR ---
PT RECEIVED RESTING COMFORTABLY IN BED. NO S/S OR C/O PAIN OR DISTRESS NOTED. SIDE RAILS UP X2, CALL LIGHT LEFT WITHIN REACH. WILL CONTINUE PLAN OF CARE.
[2021-10-26] MEDS ORDERED: MEGE400O5 PO (08:12)
[2021-10-26] MEDS: MEGESTROL ACETATE SUSP 400 MG/10 ML UDC PO SCH (08:58)
[2021-10-26] MEDS: VENLAFAXINE 25 MG TABLET PO SCH (08:59)
[2021-10-26] MEDS: PANTOPRAZOLE 40 MG TABLET.DR PO SCH (08:59)
[2021-10-26] MEDS: ASPIRIN EC 81 MG TABLET.DR PO SCH (08:59)
[2021-10-26] MEDS: ENSURE ENLIVE 237 ML LIQUID (VANILLA) PO SCH (08:59)
--- NOTE | 2021-10-26 09:37 | NUR ---
WOUND CARE CONSULT: RECEIVED CONSULT FOR SACRAL REDNESS. NO SACRAL REDNESS NOTED, ONLY PERIANAL REDNESS AND Z GUARD IS IN USE. RECOMMENDATIONS MADE FOR SKIN PROTECTION. DISCUSSED WITH NURSING STAFF. MD IN AGREEMENT WITH PLAN OF CARE.
--- NOTE | 2021-10-26 16:46 | NUR ---
PT TRANSFERRED TO SNF DISCHARGE INSTRUCTIONS GIVEN ORDERED. ALL QUESTIONS AND CONCERNS ADDRESSED. PATIENT VERBALIZED UNDERSTANDING. IV REMOVED WITH CATHETER INTACT, PRESSURE DRESSING APPLIED. MEDICATION RECONCILIATION FORM COMPLETED AND COPY GIVEN TO PATIENT. REPORT GIVEN TO MICHAEL AT [facility]. PATIENT TRANSPORTED BY AMBULANCE WITH ALL PERSONAL BELONGINGS. NO DISTRESS NOTED AT TIME OF DEPARTURE.
== END 2021-10-26 16:00 | DRG 640 ==
LOC: MED 14:25
PROVIDERS: ADMIT Internal Medicine; ATTEND Internal Medicine
DX: E86.0 Dehydration (principal); E43 Unspecified severe protein-calorie malnutrition; G93.40 Encephalopathy, unspecified; F32.2 Major depressive disorder, single episode, severe without psychotic features; R64 Cachexia; R62.7 Adult failure to thrive; E87.0 Hyperosmolality and hypernatremia; Z68.20 Body mass index [BMI] 20.0-20.9, adult; F29 Unspecified psychosis not due to a substance or known physiological condition; E78.5 Hyperlipidemia, unspecified; I10 Essential (primary) hypertension; I25.10 Atherosclerotic heart disease of native coronary artery without angina pectoris; Z95.5 Presence of coronary angioplasty implant and graft; Z73.6 Limitation of activities due to disability; F41.9 Anxiety disorder, unspecified; E88.09 Other disorders of plasma-protein metabolism, not elsewhere classified; E87.6 Hypokalemia; R53.1 Weakness
CPT/HCPCS: 36415; 80048-TC; 80053-TC; 80076-TC; 83540-TC; 83735-TC; 84100-TC; 84295-TC; 85025-TC; G0378; J1650; J2405; J3480; J3490; J7030; J7070; J7120

== ENCOUNTER 2021-11-12 09:28 | Inpatient (IN) | payer MEDICARE ==
[~2021-11-12] VITALS: Ht 167.6 cm; Wt 47.6 kg
[~2021-11-12 09:28] MED LIST changes: +ACET-868 PO; +ASPI-1420 PO; +ATOR40TA PO; +LACT-246 PO; +LORA-259 PO; +MAG30ORA PO; +MEGE400O5 PO; -ROSU20TA32 PO; +TEMA15CA PO; +VENL25TA4 PO
--- NOTE | 2021-11-12 09:28 | NUR ---
PT BIBPA FROM [facility] SENT BY PMD FOR ELEVATED BUN LEVEL 60MG/DL. PT IS AAOX2, NOT IN RESPIRATORY DISTRESS, HOOKED TO V/S MONITOR, KEPT RESTED AND COMFORTABLE. WILL CONTINUE TO MONITOR.
--- NOTE | 2021-11-12 09:49 | NUR ---
IV LINE ESTABLISHED G20 R FOREARM.
[2021-11-12] MEDS ORDERED: MIRT-121 PO (09:55)
[2021-11-12] MEDS ORDERED: IV NS 0.9% 1,000 ML BAG IV ONE (10:00)
[2021-11-12 10:08] LABS: BASOPHILS # (AUTO) 0.1 K/uL (0.0-0.2); BASOPHILS % (AUTO) 0.3 % (0.0-2.0); EOSINOPHILS % (AUTO) 0.8 % (0.0-6.0); HEMATOCRIT 53 % (39-51); HEMOGLOBIN 16.9 g/dL (13.5-17.5); LYMPHOCYTES # (AUTO) 2.2 K/uL (0.8-4.8); LYMPHOCYTES % (AUTO) 13.4 % (20.0-44.0); MEAN CORPUSCULAR HGB CONC 32 g/dl (31.0-36.0); MEAN CORPUSCULAR VOLUME 94 fL (80-96); MONOCYTES # (AUTO) 1.1 K/uL (0.1-1.30); MONOCYTES % (AUTO) 6.7 % (2.0-12.0); NEUTROPHILS # (AUTO) 13.2 K/uL (1.8-8.9); NEUTROPHILS % (AUTO) 78.8 % (43.0-81.0); PLATELET COUNT (AUTO) 136 K/uL (150-450); WHITE BLOOD COUNT (AUTO) 16.8 K/uL (4.3-11.0)
--- NOTE | 2021-11-12 10:10 | NUR ---
URINE SPECIMEN COLLECTED AND SENT TO LAB.
--- NOTE | 2021-11-12 10:20 | NUR ---
ABLE TO COLLECT 2100ML OF URINE OUTPUT. .
--- NOTE | 2021-11-12 10:26 | NUR ---
PT IS WHEELED TO CT SCAN VIA [facility].
[2021-11-12] MEDS ORDERED: Z GUARD REMEDY 4 OZ OINT TP PRN (10:30)
[2021-11-12] MEDS ORDERED: MAGNESIUM HYDROXIDE 30 ML UDC PO PRN (10:30)
[2021-11-12] MEDS ORDERED: LORAZEPAM 1 MG TABLET PO PRN (10:30)
[2021-11-12] MEDS ORDERED: IV NS 0.9% 1,000 ML IV PRN (10:30)
[2021-11-12] MEDS ORDERED: MAG HYDROX/AL HYDROX/SIMETH 30 ML UDC PO PRN ×2 (10:30)
[2021-11-12] MEDS ORDERED: ACETAMINOPHEN 325 MG TABLET PO PRN ×2 (10:30)
[2021-11-12] MEDS ORDERED: TEMAZEPAM 15 MG CAPSULE PO PRN (10:30)
[2021-11-12] MEDS ORDERED: ONDANSETRON HCL/PF 4 MG/2 ML VIAL IVP PRN (10:30)
--- NOTE | 2021-11-12 10:30 | NUR ---
MOVE SHEET SUBMITTED.
--- NOTE | 2021-11-12 10:44 | NUR ---
COVID SPECIMEN OBTAINED AND SENT TO LAB.
[2021-11-12 10:47] LABS: BILIRUBIN,URINE NEGATIVE (NEGATIVE); COLOR,URINE YELLOW (YELLOW); LEUKOCYTE ESTERASE ,URINE NEGATIVE (NEGATIVE); NITRITE, URINE NEGATIVE (NEGATIVE); PROTEIN,URINE NEGATIVE (NEGATIVE); UGLUCOSE NEGATIVE (NEGATIVE); UROBILINOGEN,URINE 0.2 EU/dL (0.2)
[2021-11-12] MEDS ORDERED: IV NS 0.9% 500 ML BAG IV ONE (11:30)
[2021-11-12] MEDS ORDERED: PIPERACILLIN /TAZOBACTAM 3.375 G in IV D5W 50 ML IV ONE (11:30)
[2021-11-12 11:33] LABS: BACTERIA,URINE Few /HPF (None Seen); SQUAMOUS EPITHELIAL CELL,UR 0-2 /HPF (None Seen)
[2021-11-12 11:34] LABS: ALANINE AMINOTRANSFERASE 108 U/L (12-78); ALBUMIN 2.4 g/dL (3.4-5.0); ALKALINE PHOSPHATASE 124 U/L (46-116); ASPARTATE AMINOTRANSFERASE 55 U/L (15-37); BILIRUBIN,DIRECT 0.2 mg/dL (0.0-0.2); BILIRUBIN,TOTAL 0.8 mg/dL (0.2-1.0); CALCIUM, SERUM 9.1 mg/dL (8.5-10.1); CARBON DIOXIDE 21 mmol/L (21-32); GLUCOSE 114 mg/dL (74-106); POTASSIUM 4.3 mmol/L (3.5-5.1); TOTAL PROTEIN, SERUM 6.7 g/dL (6.4-8.2)
[2021-11-12 12:03] LABS: CHLORIDE 132 mmol/L (98-107); SODIUM SERUM 171 mmol/L (136-145); UREA NITROGEN, BLOOD 67 mg/dL (7-18)
--- NOTE | 2021-11-12 13:08 | NUR ---
[facility] BED 111-1
--- NOTE | 2021-11-12 13:09 | NUR ---
CALLED FOR REPORT RN NOT AVAILBLE.
--- NOTE | 2021-11-12 13:27 | NUR ---
REPORT GIVEN TO MADDIE JOHNSON FOR MARCUS. WITH ONGOING IV FLUIDS INFUSING WELL.
[2021-11-12 13:50] VITALS: BP 103/72
--- NOTE | 2021-11-12 13:50 | NUR ---
MS RN NOTES RECEIVED PATIENT FROM ER, DX RYAN BY DR. RIVERA, LETHARGIC, FLAT AFFECT, UNABLE TO FOLLOW COMMAND, FROM [facility]. ON ROOM AIR, O2 SAT AT 98%. AFEBRILE. NO PAIN, NO GRIMACINGS, NO MOANING. IV ACCESS ON RIGHT FOREARM, FLUSHES WELL, SITE CLEAR. SKIN ASSESSMENT DONE, PHOTOS OF SKIN ISSUES TAKEN AND INCORPORATED IN CHART. FOR WOUND CONSULT. CLEAR LIQUID DIET. CALL LIGHT WITHIN REACH, SAFETY MEASURES IN PLACE, BED LOW.LOCKED, SRU X 3, WILL CONT TO MONITOR. ALMANZA CATH IN PLACE DRAINING BLOOD TINGED URINE. PER ER STAFF, THEY WERE ABLE TO DRAIN 2100 ML OF URINE PRIOR TO TRANSFER TO ROOM. ALL ADMIT ORDERS CARRIED OUT.
--- NOTE | 2021-11-12 15:01 | NUR ---
RN NOTES DR. RIVERA NOTIFIED. LACTIC ACID 4.9. NEW ORDER; CHANGE IVF TO 1/2 NS 100ML/HR.
[2021-11-12] MEDS: IV 1/2NS 1000 ML 1,000 ML IV PRN (15:17)
--- NOTE | 2021-11-12 18:44 | NUR ---
RN NOTES PATIENT RESTING COMFORTABLY. NO SIGNS OF PAIN, NO DISTRESS. RESPIRATION UNLABORED. IVF INFUSING WELL TO RIGHT FOREARM. SITE CLEAR. ALMANZA CATH IN PLACE WITH 500 ML TOTAL URINE OUTPUT, BLOOD TINGED. ALL NEEDS MET AT THIS TIME. PM CARE DONE EARLIER. SAFETY MEASURES IN PLACE. BED LOW LOCKED. SRU X 3. CALL LIGHT WITHIN REACH. WILL ENDORSE TO NEXT SHIFT FOR MARCUS.
--- NOTE | 2021-11-12 19:52 | NUR ---
MS RN NOTE RECEIVED PATIENT SLEEPING ON BED, BUT EASILY AROUSABLE TO TOUCH AND VOICE, A/O X2, ON ROOM AIR, O2 SAT AT 98%. NO DISTRESS AND DISCOMFORT NOTED AT THIS TIME, IV ACCESS ON RIGHT FOREARM RUNNING 1/2 NS AT 100 ML/HR, INTACT AND PATENT, NO BLEEDING NOTED, WITH ALMANZA CATH IN PLACE DRAINING TO GRAVITY WITH YELLOW COLORED URINE, ON CLEAR LIQUID DIET. CALL LIGHT WITHIN REACH, SAFETY MEASURES IN PLACE, BED LOCKED AND IN LOWEST POSITION, WILL CONTINUE TO MONITOR.
[2021-11-12 22:00] VITALS: BP 113/73
[2021-11-12] MEDS: ATORVASTATIN 40 MG TABLET PO SCH (22:06)
[2021-11-12] MEDS: MIRTAZAPINE 15 MG TABLET PO SCH (22:06)
[2021-11-13] MEDS: IV 1/2NS 1000 ML 1,000 ML IV PRN ×2 (01:54→12:45)
[2021-11-13 04:00] VITALS: BP 109/72
[2021-11-13 06:45] LABS: BASOPHILS % (AUTO) 0.3 % (0.0-2.0); EOSINOPHILS % (AUTO) 2.2 % (0.0-6.0); HEMATOCRIT 49 % (39-51); HEMOGLOBIN 15.5 g/dL (13.5-17.5); LYMPHOCYTES # (AUTO) 1.7 K/uL (0.8-4.8); LYMPHOCYTES % (AUTO) 11.6 % (20.0-44.0); MEAN CORPUSCULAR HGB CONC 32 g/dl (31.0-36.0); MEAN CORPUSCULAR VOLUME 94 fL (80-96); MONOCYTES % (AUTO) 6.8 % (2.0-12.0); NEUTROPHILS # (AUTO) 11.5 K/uL (1.8-8.9); NEUTROPHILS % (AUTO) 79.1 % (43.0-81.0); PLATELET COUNT (AUTO) 109 K/uL (150-450); RED BLOOD CELL COUNT(AUTO) 5.17 MIL/uL (4.5-6.0); WHITE BLOOD COUNT (AUTO) 14.6 K/uL (4.3-11.0)
--- NOTE | 2021-11-13 06:58 | NUR ---
MS RN CLOSING NOTE NO SIGNIFICANT CHANGES THROUGHOUT THE SHIFT, PATIENT SLEEPING ON BED, BUT EASILY AROUSABLE TO TOUCH AND VOICE, A/O X2, ON ROOM AIR, O2 SAT AT 98%. NO DISTRESS AND DISCOMFORT NOTED AT THIS TIME, IV ACCESS ON RIGHT FOREARM RUNNING 1/2 NS AT 100 ML/HR, INTACT AND PATENT, NO BLEEDING NOTED, WITH ALMANZA CATH IN PLACE DRAINING TO GRAVITY WITH YELLOW COLORED URINE, ON CLEAR LIQUID DIET. KEPT DRY AND CLEAN, ALL DUE MEDS GIVEN ORDERED, CALL LIGHT WITHIN REACH, SAFETY MEASURES IN PLACE, BED LOCKED AND IN LOWEST POSITION, ENDORSE TO AM SHIFT NURSE.
[2021-11-13 07:17] LABS: CALCIUM, SERUM 8.6 mg/dL (8.5-10.1); CARBON DIOXIDE 23 mmol/L (21-32); CREATININE 1.5 mg/dL (0.6-1.3); GLUCOSE 84 mg/dL (74-106); MAGNESIUM 2.1 mg/dL (1.8-2.4); PHOSPHORUS 3.9 mg/dL (2.5-4.9); POTASSIUM 4.5 mmol/L (3.5-5.1); UREA NITROGEN, BLOOD 53 mg/dL (7-18)
--- NOTE | 2021-11-13 07:41 | NUR ---
MS RN OPENING NOTE Patient in bed, asleep. A/O x 2. On room air, breathing evenly and unlabored. No SOB or s/s of distress noted. IV access on RFA #20 infusing 1/2 NS at 100 ml/hr. Puckett catheter in place draining to a yellow colored urine. Safety precautions in place: bed in low, locked position; siderails up x 2; call light within reach. Will continue to monitor.
[2021-11-13 08:10] LABS: CHLORIDE 136 mmol/L (98-107); SODIUM SERUM 170 mmol/L (136-145)
--- NOTE | 2021-11-13 08:10 | NUR ---
RN NOTE Received critical value from May from lab, Sodium 170, Chloride 136. Dr. Medina aware.
[2021-11-13] MEDS: PANTOPRAZOLE 40 MG VIAL IV SCH (09:22)
[2021-11-13] MEDS: ASPIRIN EC 81 MG TABLET.DR PO SCH (09:22)
[2021-11-13] MEDS ORDERED: LEVOFLOXACIN 500 MG /D5W 100ML 500 MG in PREMIX 1 EA IV ONE (10:00)
[2021-11-13] MEDS: VENLAFAXINE 25 MG TABLET PO SCH (10:08)
[2021-11-13 11:13] VITALS: BP 116/68
[2021-11-13 16:00] VITALS: BP 111/86
--- NOTE | 2021-11-13 18:13 | NUR ---
RN NOTE Blood tinge stool noted on patient, Dr. Medina aware.
--- NOTE | 2021-11-13 18:52 | NUR ---
MS RN CLOSING NOTE Patient in bed, resting. A/O x 2. Stable on room air, breathing evenly and unlabored. No SOB or s/s of distress noted. IV access on RFA #20 infusing 1/2 NS at 100 ml/hr. Puckett catheter in place draining to a yellow colored urine with an output of 650 cc. All needs attended to. due meds given. Safety precautions maintained: bed in low, locked position; siderails up x 2; call light within reach. Will endorse to shiftman nurse for MARCUS. Addendum: 11/13/21 at 1936 by ELMA TRAN RN ADD: Turned and repositioned, as tolerated.
[2021-11-13 20:00] VITALS: BP 94/62
--- NOTE | 2021-11-13 20:03 | NUR ---
RN NOTE RECEIVED PT ALERT AND ORIENTED TO NAME, NOT IN ANY DISTRESS. O2SAT AT 97% ON RA. RFA IV INTACT AND PATENT 1/2 NS RUNNING AT 100ML.HR. ALMANZA IN PLACE. DRAINING CLEAR YELLOW URINE OUTPUT.ALL SAFETY MEASURES IN PLACE. WILL CONTINUE TO MONITOR
[2021-11-13] MEDS: ATORVASTATIN 40 MG TABLET PO SCH (21:36)
[2021-11-13] MEDS: MIRTAZAPINE 15 MG TABLET PO SCH (21:36)
--- NOTE | 2021-11-13 23:45 | NUR ---
RN NOTE PT BP IN 90S. NOTIFIED ASSURANCE SENIOR SUPERVISOR SPECIAL EFFECTS KATERYNA. NO ORDER AT THIS TIME. PT COMMUNICATES, AOX2. WILL CONTINUE TO MONITOR.
[2021-11-14] VITALS: BP 94/71
[2021-11-14] MEDS: IV 1/2NS 1000 ML 1,000 ML IV PRN (00:32)
[2021-11-14 04:00] VITALS: BP 100/66
[2021-11-14 06:36] LABS: BASOPHILS % (AUTO) 0.2 % (0.0-2.0); EOSINOPHILS % (AUTO) 0.2 % (0.0-6.0); HEMATOCRIT 49 % (39-51); HEMOGLOBIN 15.8 g/dL (13.5-17.5); LYMPHOCYTES # (AUTO) 1.6 K/uL (0.8-4.8); LYMPHOCYTES % (AUTO) 9.7 % (20.0-44.0); MEAN CORPUSCULAR HGB CONC 32 g/dl (31.0-36.0); MEAN CORPUSCULAR VOLUME 93 fL (80-96); MONOCYTES # (AUTO) 1.2 K/uL (0.1-1.30); MONOCYTES % (AUTO) 7.2 % (2.0-12.0); NEUTROPHILS # (AUTO) 13.7 K/uL (1.8-8.9); NEUTROPHILS % (AUTO) 82.7 % (43.0-81.0); PLATELET COUNT (AUTO) 107 K/uL (150-450); RED BLOOD CELL COUNT(AUTO) 5.26 MIL/uL (4.5-6.0); WHITE BLOOD COUNT (AUTO) 16.6 K/uL (4.3-11.0)
--- NOTE | 2021-11-14 06:47 | NUR ---
RN NOTE NO CHANGES IN LOC NOTED. ON FREQUENT VISUAL CHECKS. CONTINUE ON IVFLUIDS OF 1/2 NS AT 100ML/HR, INFUSING WELL. NO SIGNS OF INFILTRATION NOTED. ALMANZA REMAIN INPLACE WITH 300ML URINE OUTPUT. TURNED AND REPOSITIONED. ALL SAFETY MEASURES MAINTAINED. WILL ENDORSE TO NEXT SHIFT NURSE FOR MARCUS.
--- NOTE | 2021-11-14 07:00 | NUR ---
RN OPENING NOTE PATIENT LAYING IN BED, A/O X 2, TOLERATING WELL ON ROOM AIR WITH NO SOB OR S/S RESPIRATORY DISTRESS. NO COMPLAINTS OF PAIN OR DISCOMFORT AT THIS TIME. RFA # 20 CLEAN, INTACT, AND FLUSHING WELL WITH 1/2 NS @ 100 ML/HR. ALMANZA CATHETER IN PLACE DRAINING CLEAR YELLOW URINE TO GRAVITY. SAFETY MEASURES IN PLACE: BED IN LOWEST LOCKED POSITION, SIDE RAILS UP X 2, CALL LIGHT WITHIN REACH. WILL CONTINUE TO MONITOR.
[2021-11-14 07:02] LABS: CALCIUM, SERUM 8.5 mg/dL (8.5-10.1); CARBON DIOXIDE 21 mmol/L (21-32); CREATININE 1.7 mg/dL (0.6-1.3); GLUCOSE 93 mg/dL (74-106); PHOSPHORUS 3.8 mg/dL (2.5-4.9); POTASSIUM 3.1 mmol/L (3.5-5.1); UREA NITROGEN, BLOOD 45 mg/dL (7-18)
[2021-11-14 07:34] LABS: SODIUM SERUM 168 mmol/L (136-145)
[2021-11-14 07:35] LABS: CHLORIDE 131 mmol/L (98-107)
[2021-11-14] MEDS: IV D5W 1,000 ML IV SCH ×2 (08:32→18:10)
[2021-11-14] MEDS: PANTOPRAZOLE 40 MG VIAL IV SCH (08:46)
[2021-11-14] MEDS: ASPIRIN EC 81 MG TABLET.DR PO SCH (08:47)
[2021-11-14] MEDS: VENLAFAXINE 25 MG TABLET PO SCH (08:48)
[2021-11-14] MEDS: LEVOFLOXACIN 250 MG /D5W 50 ML 250 MG in PREMIX 1 EA IV SCH (09:31)
[2021-11-14] MEDS ORDERED: POTASSIUM CHLORIDE 10 MEQ TABLET.SA PO ONE (11:30)
[2021-11-14 12:00] VITALS: BP 106/68
[2021-11-14] MEDS ORDERED: ACETAMINOPHEN 650 MG/20.3 ML UDC PO PRN (15:30)
[2021-11-14] MEDS ORDERED: POTASSIUM CHLORIDE 20 MEQ POWDER PACKET PO ONE (15:30)
[2021-11-14] MEDS ORDERED: POTASSIUM CL. PREMIX PERIPHER. 50 ML IV SCH (16:00)
--- NOTE | 2021-11-14 19:00 | NUR ---
RN CLOSING NOTES PATIENT LAYING IN BED, A/O X 2, TOLERATING WELL ON ROOM AIR WITH NO SOB OR S/S RESPIRATORY DISTRESS. NO COMPLAINTS OF PAIN OR DISCOMFORT AT THIS TIME. RFA # 20 CLEAN, INTACT AND INFUSING D5W @ 125 ML/HR. ALMANZA CATHETER IN PLACE DRAINING CLEAR YELLOW URINE TO GRAVITY. SAFETY MEASURES IN PLACE: BED IN LOWEST LOCKED POSITION, SIDE RAILS UP X 2, CALL LIGHT WITHIN REACH. ALL NEEDS MET. WILL ENDORSE TO WAREHOUSE RECEIVING SUPERVISOR FOR MARCUS.
[2021-11-14 20:00] VITALS: BP 116/72
--- NOTE | 2021-11-14 20:30 | NUR ---
RN NOTE RECEIVED PATIENT IN BED, SLEEPING, VERY LETHARGIC. OPENS EYES ON COMMAND. SLOW TO SPEAK. LABORED BREATHING NOTED. TACHYPNEIC. PATIENT WITH OXYGEN SATURATION OF 85-86 PERCENT ROOM AIR. SWITCHED TO FACE MASK, AT 6L/MIN. SATURATION SLOWLY INCREASED TO 91-92% PERCENT WITH GOOD WAVEFORM. NOTED WITH CONGESTION, NO COUGH. HOB ELEVATED 45 DEGREES. SKIN WARM AND DRY. NOTED WITH RIGHT FOREARM 20G IV LEAKING FROM SITE. SITE COVERED WITH BLOOD. WAS INFUSING D5W AT 125 CC/HR. NO ARM SWELLING. REMOVED AND OCCLUDED WITH DRY GAUZE. PIV STRAIGHT AND INTACT. REINSERTED RIGHT MEDIAL LATERAL 22G PIV WITH GOOD BLOOD RETURN. RESUMED IV FLUIDS. INDWELLING ALMANZA CATHETER DRAINING YELLOW URINE. ASSISTED WITH TURNING AND REPOSITIONING. BED LOW, IN LOCKED POSITION, CALL LIGHT WITHIN REACH. WILL CONTINUE TO MONITOR.
[2021-11-14] MEDS: MIRTAZAPINE 15 MG TABLET PO SCH (22:12)
[2021-11-14] MEDS: ATORVASTATIN 40 MG TABLET PO SCH (22:12)
[2021-11-15] MEDS: IV D5W 1,000 ML IV SCH ×3 (00:04→17:48)
[2021-11-15 04:00] VITALS: BP 91/63
--- NOTE | 2021-11-15 04:00 | NUR ---
RN NOTE PATIENT ON 5L VIA NASAL CANNULA, SATURATION OF 88-89 PERCENT. SWITCHED TO FACE MASK AT 10 L/MIN. SATURATION OF 92 PERCENT. HOB ELEVATED. WILL CONTINUE TO MONITOR.
[2021-11-15 05:58] LABS: HEMATOCRIT 47 % (39-51); HEMOGLOBIN 15.5 g/dL (13.5-17.5); LYMPHOCYTES # (AUTO) 1.1 K/uL (0.8-4.8); LYMPHOCYTES % (AUTO) 8.4 % (20.0-44.0); MEAN CORPUSCULAR HGB CONC 33 g/dl (31.0-36.0); MEAN CORPUSCULAR VOLUME 91 fL (80-96); MONOCYTES % (AUTO) 7.4 % (2.0-12.0); NEUTROPHILS # (AUTO) 11.3 K/uL (1.8-8.9); NEUTROPHILS % (AUTO) 84.2 % (43.0-81.0); PLATELET COUNT (AUTO) 119 K/uL (150-450); RED BLOOD CELL COUNT(AUTO) 5.15 MIL/uL (4.5-6.0); WHITE BLOOD COUNT (AUTO) 13.4 K/uL (4.3-11.0)
[2021-11-15 06:02] LABS: CALCIUM, SERUM 8.2 mg/dL (8.5-10.1); CARBON DIOXIDE 18 mmol/L (21-32); CREATININE 1.7 mg/dL (0.6-1.3); GLUCOSE 172 mg/dL (74-106); UREA NITROGEN, BLOOD 49 mg/dL (7-18)
[2021-11-15 06:06] LABS: CHLORIDE 129 mmol/L (98-107); SODIUM SERUM 163 mmol/L (136-145)
--- NOTE | 2021-11-15 07:30 | NUR ---
RN NOTE RECEIVED PATINET IN BED RESTING,ALERT ORIENTED X1 ON FACE SIMPLE MASK 10L OXYGEN O2:89-90%,LABORED BREATHING TACHYPNEIC IV SITE IS ON RIGHT AC INTACT PATENT ON D5W 125CC/HR,ALMANZA CATH IN PLACE URINE DRAINING YELLOW AND CLEAR BY GRAVITY,SAFETY MEASURE IMPLEMENT BED IN LOW POSITON AND LOCKED,HEAD OF THE BED ELEVATED,CONTINUE TO MONITOR.
[2021-11-15] MEDS: POTASSIUM CL. PREMIX PERIPHER. 50 ML IV SCH ×5 (07:59→12:23)
[2021-11-15] MEDS: VENLAFAXINE 25 MG TABLET PO SCH (08:54)
[2021-11-15] MEDS: ASPIRIN EC 81 MG TABLET.DR PO SCH (08:54)
[2021-11-15] MEDS: PANTOPRAZOLE 40 MG TABLET.DR PO SCH (08:54)
[2021-11-15] MEDS: LEVOFLOXACIN 250 MG /D5W 50 ML 250 MG in PREMIX 1 EA IV SCH (10:03)
[2021-11-15 12:00] VITALS: BP 109/72
--- NOTE | 2021-11-15 18:48 | NUR ---
RN NOTE PATIENT REMAINS ON ALERT CONFUSED ON FACE MASK 10L O2:92% IV SITE IS ON RIGHT AC AND RIGHT FOREARM ON D5W IV HYDRATION 125CC/HR ALMANZA CATHETER IN PLACE KEPT CLEAN AND DRY ALL THE TIME,REPOSITIONED EVERY 2 HOURS,HEAD OF THE BED ELEVATED,ENDORSE NEXT COMING SHIFT FOR CONTINUATION OF CARE.
--- NOTE | 2021-11-15 19:37 | NUR ---
UNIT STAFFING NEEDS Care endorsed to MADDIE Caceres.
[2021-11-15 20:00] VITALS: BP 113/71
--- NOTE | 2021-11-15 20:30 | NUR ---
RN NOTE RECEIVED PATIENT IN BED, VERY LETHARGIC. AROUSABLE TO TOUCH ONLY. BREATHING LABORED. ON 10L/MIN VIA FACE MASK. OXYGEN SATURATION 93 PERCENT ON SPO2 MONITOR WITH GOOD WAVEFORM. HOB ELEVATED 40 DEGREES. RIGHT AC 22G CURRENTLY INFUSING D5W AT 125 CC/HR. NO INFILTRATION. INDWELLING ALMANZA CATHETER, DRAINING YELLOW URINE BY GRAVITY. PATIENT TURNED AND REPOSITIONED. WILL CONTINUE TO MONITOR.
[2021-11-15] MEDS: ATORVASTATIN 40 MG TABLET PO SCH (22:00)
[2021-11-15] MEDS: MIRTAZAPINE 15 MG TABLET PO SCH (22:00)
--- NOTE | 2021-11-15 22:41 | NUR ---
RN NOTE PATIENT LETHARGIC, UNSAFE TO TAKE PO MEDICATION. AROUSABLE BUT IMMEDIATELY FALLS BACK TO SLEEP. PO MEDICATION HELD. INFORMED MD ELECTRO MECHANICAL ASSEMBLER.
[2021-11-16] MEDS: IV D5W 1,000 ML IV SCH (01:21)
[2021-11-16 04:00] VITALS: BP 90/60
--- NOTE | 2021-11-16 04:06 | NUR ---
RN NOTE Patient noted with large amount of dark red blood in perianal area. Multiple large clumps of blood. Source of bleeding is from anus. BP: 90/60, HR 109, RR 28, O2 SATURATION OF 91 ON 10L/MIN Face mask. Informed animal control licensing worker, Vicente. Per , call lab to perform CBC now. Also, GI consult in AM. Noted and carried out. Addendum: 11/16/21 at 0410 by ELIZABETH CONTRERAS RN CORRECTION, per , endorse GI consult to incoming AM nurse.
[2021-11-16 04:38] LABS: BASOPHILS % (AUTO) 0.1 % (0.0-2.0); EOSINOPHILS % (AUTO) 0.2 % (0.0-6.0); HEMATOCRIT 42 % (39-51); HEMOGLOBIN 13.9 g/dL (13.5-17.5); LYMPHOCYTES # (AUTO) 1.1 K/uL (0.8-4.8); LYMPHOCYTES % (AUTO) 7.2 % (20.0-44.0); MEAN CORPUSCULAR HGB CONC 33 g/dl (31.0-36.0); MEAN CORPUSCULAR VOLUME 91 fL (80-96); MONOCYTES % (AUTO) 6.5 % (2.0-12.0); NEUTROPHILS # (AUTO) 13.1 K/uL (1.8-8.9); PLATELET COUNT (AUTO) 117 K/uL (150-450); RED BLOOD CELL COUNT(AUTO) 4.65 MIL/uL (4.5-6.0); WHITE BLOOD COUNT (AUTO) 15.3 K/uL (4.3-11.0)
[2021-11-16 05:08] LABS: CALCIUM, SERUM 7.9 mg/dL (8.5-10.1); CARBON DIOXIDE 21 mmol/L (21-32); CREATININE 1.5 mg/dL (0.6-1.3); GLUCOSE 132 mg/dL (74-106); POTASSIUM 3.6 mmol/L (3.5-5.1); UREA NITROGEN, BLOOD 48 mg/dL (7-18)
[2021-11-16 05:18] LABS: CHLORIDE 126 mmol/L (98-107); SODIUM SERUM 159 mmol/L (136-145)
--- NOTE | 2021-11-16 07:37 | NUR ---
RN OPENING NOTES Patient seen comfortably lying in bed, no shortness of breath, no apparent distress noted, breathing even and unlabored, denies any pain or discomfort at this time, no grimacing. Call light left within reach, safety precautions in place, brakes locked, side rails up X 2.
--- NOTE | 2021-11-16 07:37 | NUR ---
RN OPENING NOTES Patient seen comfortably lying in bed, no shortness of breath, no apparent distress noted, breathing even and unlabored, no grimacing. Call light left within reach, safety precautions in place, brakes locked, side rails up X 2.
[2021-11-16 08:00] VITALS: BP 92/58
[2021-11-16] MEDS: ASPIRIN EC 81 MG TABLET.DR PO SCH ×2 (08:32→09:00)
[2021-11-16] MEDS: VENLAFAXINE 25 MG TABLET PO SCH (08:32)
[2021-11-16] MEDS: PANTOPRAZOLE 40 MG TABLET.DR PO SCH (08:32)
[2021-11-16] MEDS ORDERED: FUROSEMIDE 20 MG/2 ML VIAL IV SCH (09:30)
[2021-11-16 09:34] LABS: LYMPHOCYTES % (MANUAL) 6 % (16-48); MONOCYTES % (MANUAL) 6 % (0-11.0); NEUTROPHILS % (MANUAL) 88 (42-76)
[2021-11-16] MEDS: LEVOFLOXACIN 250 MG /D5W 50 ML 250 MG in PREMIX 1 EA IV SCH (10:17)
[2021-11-16 16:00] VITALS: BP 96/75
--- NOTE | 2021-11-16 18:28 | NUR ---
RN CLOSING NOTES Patient lying in bed, no apparent distress noted, respirations even and unlabored, no shortness of breath, remained afebrile, no grimacing. Patient has an order for IV antibiotics, peripheral IV line on right hand site covered with dry dressings, intact and flushing well, no redness, no swelling noted, no s/s of infiltration at this time. Puckett catheter draining clear yellowish urine free from any sediments, no hematuria, and no unusual odor noted in urine, no grimacing when bladder palpated, bladder non distended during shift. Patient was noted to have large amount of dark red blood on his perianal area from previous shift, none noted during shift, no bleeding, no unusual drainage, no unusual odor. Skin warm to touch, no pallor or cyanosis noted. Call light left within reach, all needs anticipated, frequent visual check rendered, kept clean and dry, aspiration precautions rendered, safety precautions in place, brakes locked, side rails up X 2.
--- NOTE | 2021-11-16 19:20 | NUR ---
RN NOTE RN NOTE PT RECEIVED IN BED. PT IS ON SIMPLE FACE MASK AT 10L WITH CURRENT OXYGEN SATURATION >90%. RESPIRATIONS LABORED. PT IS ABLE TO AMBULATE. IV ACCESS NOTED ON RIGHT FA. LINE FLUSHED, PATENT, AND INTACT WITH NO SIGNS OF INFILTRATION. 0.9% NS RUNNING AT 100 CC/HR. ALL SAFETY MEASURES IMPLEMENTED. CALL LIGHT WITHIN REACH. BED LOCKED AND IN LOWEST POSITION. WILL CONTINUE TO MONITOR AND ASSESS FOR ANY CHANGES DURING SHIFT. Addendum: 11/17/21 at 0038 by SHARAD SEWELL RN WRONG ENTRY
--- NOTE | 2021-11-16 19:20 | NUR ---
RN NOTE PT RECEIVED IN BED. PT IS ON SIMPLE FACE MASK AT 10L WITH CURRENT OXYGEN SATURATION >91%. RESPIRATIONS LABORED. PT IS NOT ALERT/ORIENTED. ALMANZA CATH NOTED DRAINING YELLOW COLORED URINE. CURRENTLY NPO. IV ACCESS NOTED ON RIGHT HAND. LINE FLUSHED, PATENT, AND INTACT WITH NO SIGNS OF INFILTRATION. ALL SAFETY MEASURES IMPLEMENTED. CALL LIGHT WITHIN REACH. BED LOCKED AND IN LOWEST POSITION. WILL CONTINUE TO MONITOR AND ASSESS FOR ANY CHANGES DURING SHIFT.
[2021-11-16 20:00] VITALS: BP 94/67
[2021-11-16] MEDS ORDERED: PIPERACILLIN /TAZOBACTAM 2.25 G VIAL IV ONE (21:13)
[2021-11-16] MEDS: MIRTAZAPINE 15 MG TABLET PO SCH (21:13)
[2021-11-16] MEDS: ATORVASTATIN 40 MG TABLET PO SCH (21:13)
[2021-11-16] MEDS: PIPERACILLIN /TAZOBACTAM 2.25 G in IV D5W 50 ML IV SCH (21:18)
[2021-11-16] MEDS ORDERED: VANCOMYCIN 1 GM VIAL ONE (22:11)
[2021-11-16] MEDS ORDERED: VANCOMYCIN 0.75 GM in IV D5W 250 ML IV ONE (23:00)
[2021-11-17] MEDS ORDERED: PIPERACILLIN /TAZOBACTAM 2.25 G VIAL IV ONE (03:36)
[2021-11-17] MEDS: PIPERACILLIN /TAZOBACTAM 2.25 G in IV D5W 50 ML IV SCH ×3 (03:37→17:09)
[2021-11-17 04:00] VITALS: BP 95/51
--- NOTE | 2021-11-17 06:20 | NUR ---
RN NOTE NO CHANGES IN PT CONDITION DURING SHIFT. PT IS ON SIMPLE FACE MASK AT 10L WITH CURRENT OXYGEN SATURATION FLUCTUATING BETWEEN 92-96%. RESPIRATIONS LABORED AND TACHYPNEIC. PT IS NOT ALERT/ORIENTED. IV ACCESS NOTED ON RIGHT HAND. ALL SAFETY MEASURES IMPLEMENTED. CALL LIGHT WITHIN REACH. BED LOCKED AND IN LOWEST POSITION. HOB ELEVATED. SIDE RAILS UP. WILL ENDORSE TO MORNING SHIFT RN FOR MARCUS.
[2021-11-17 07:09] LABS: CALCIUM, SERUM 8.5 mg/dL (8.5-10.1); CREATININE 1.1 mg/dL (0.6-1.3)
[2021-11-17 07:23] LABS: POTASSIUM 3.4 mmol/L (3.5-5.1)
[2021-11-17] MEDS: ASPIRIN EC 81 MG TABLET.DR PO SCH (09:00)
[2021-11-17] MEDS: PANTOPRAZOLE 40 MG TABLET.DR PO SCH (09:00)
[2021-11-17] MEDS: VENLAFAXINE 25 MG TABLET PO SCH (09:00)
[2021-11-17] MEDS: POTASSIUM CL. PREMIX PERIPHER. 50 ML IV SCH ×2 (10:32→11:32)
[2021-11-17] MEDS: LEVOFLOXACIN 250 MG /D5W 50 ML 250 MG in PREMIX 1 EA IV SCH (10:33)
[2021-11-17 12:00] VITALS: BP 106/73
[2021-11-17] MEDS: HEPARIN SODIUM, PORCINE 5000 UNITS/1 ML VIAL SQ SCH ×3 (12:08→21:42)
--- NOTE | 2021-11-17 19:35 | NUR ---
RN NOTE PT RECEIVED ON SIMPLE FACE MASK AT 10L WITH CURRENT OXYGEN SATURATION FLUCTUATING BETWEEN 92-96%. RESPIRATIONS LABORED AND TACHYPNEIC. PT IS NOT ALERT/ORIENTED. IV ACCESS NOTED ON RIGHT HAND. ALL SAFETY MEASURES IMPLEMENTED. CALL LIGHT WITHIN REACH. BED LOCKED AND IN LOWEST POSITION. HOB ELEVATED. SIDE RAILS UP. WILL CONTINUE TO MONITOR.
--- NOTE | 2021-11-17 19:41 | NUR ---
RN NOTE NO CHANGES IN PT CONDITION THIS SHIFT. ON SIMPLE FACE MASK AT 10L WITH O2 SATURATION 92-94%. STILL NOTED WITH LABORED BREATHING. IV ACCESS NOTED ON RIGHT HAND INTACT AND PATENT. ALL SAFETY MEASURES FOLLOWED. DUE MEDS GIVEN. NEEDS ATTENDED. WILL ENDORSE TO NEXT SHIFT.
[2021-11-17 20:00] VITALS: BP 87/59
[2021-11-17] MEDS ORDERED: VANCOMYCIN 0.75 GM in IV D5W 250 ML IV SCH (21:00)
--- NOTE | 2021-11-17 21:00 | NUR ---
rn notes heparin dose not administered as pt is here for gi bleed. dose discarded. undone on emar.
[2021-11-17] MEDS: MIRTAZAPINE 15 MG TABLET PO SCH (21:36)
[2021-11-17] MEDS: ATORVASTATIN 40 MG TABLET PO SCH (21:36)
[2021-11-18] MEDS: PIPERACILLIN /TAZOBACTAM 2.25 G in IV D5W 50 ML IV SCH ×2 (00:21→05:11)
[2021-11-18 04:00] VITALS: BP 148/82
--- NOTE | 2021-11-18 05:51 | NUR ---
ms rn notes pt noted with a bloody stool reported to asset protection specialist
--- NOTE | 2021-11-18 07:08 | NUR ---
ms rn notes walked in with day shift rn while doing report noted pt having rise or fall of chest, listened to lung sounds and heart sound none heart no pulse palpated. skin is cold to the touch. verified with second RN pts passing at [phone] charge nurse aware.
--- NOTE | 2021-11-18 07:10 | NUR ---
RN NOTES NO FAMILY OR NEXT OF KIN PROVIDED FOR PATIENT. DR RIVERA NOTIFIED OF TIME OF . NURSING PRODUCTION HAND, BRAAK MADE AWARE.
--- NOTE | 2021-11-18 07:36 | NUR ---
MS RN NOTES [facility] CALLED SPOKE TO ASHLIE REFERENCE NUMBER [phone] PT DOES NOT QUALIFY FOR DONATION OKAY TO RELEASE THE BODY WILL ENDORSE TO DAY SHIFT NURSE.
--- NOTE | 2021-11-18 07:40 | NUR ---
RN NOTES POST MORTEM CARE PROVIDED. NOTIFIED SECURITY/TRANSPORTATION TO ORGANIZATIONAL EFFECTIVENESS CONSULTANT BODY.
--- NOTE | 2021-11-18 11:00 | NUR ---
RN NOTES CALLED SISTER 2X TO NOTIFY OF FAMILY . NO ANSWER, LEFT VOICEMAIL. SISTER PHONE NUMBER GIVEN: EMILIANO .
== END 2021-11-18 08:37 | DRG 871 ==
LOC: ER 09:32 → TELE1 13:15 → MEDSG1 18:02
PROVIDERS: ADMIT Internal Medicine; ATTEND Internal Medicine
DX: A41.9 Sepsis, unspecified organism (principal); N17.0 Acute kidney failure with tubular necrosis; G93.41 Metabolic encephalopathy; J96.01 Acute respiratory failure with hypoxia; J69.0 Pneumonitis due to inhalation of food and vomit; E87.0 Hyperosmolality and hypernatremia; Z68.1 Body mass index [BMI] 19.9 or less, adult; E87.1 Hypo-osmolality and hyponatremia; E87.2 Acidosis; I25.10 Atherosclerotic heart disease of native coronary artery without angina pectoris; E86.0 Dehydration; E78.5 Hyperlipidemia, unspecified; E86.1 Hypovolemia; E88.09 Other disorders of plasma-protein metabolism, not elsewhere classified; I10 Essential (primary) hypertension; Z66 Do not resuscitate; R62.7 Adult failure to thrive; R74.01 Elevation of levels of liver transaminase levels; K52.9 Noninfective gastroenteritis and colitis, unspecified; K52.89 Other specified noninfective gastroenteritis and colitis; F25.9 Schizoaffective disorder, unspecified; R33.9 Retention of urine, unspecified; F09 Unspecified mental disorder due to known physiological condition; K59.00 Constipation, unspecified; Z79.899 Other long term (current) drug therapy
CPT/HCPCS: 36415; 70450-TC; 71045-TC; 76770-TC; 80048-TC; 80076-TC; 81001; 83605-TC; 83735-TC; 84100-TC; 84484-TC; 85025-TC; 87040-TC; 87081-TC; 87086-TC; 92526; 92611-TC; A4216; C9113; C9803; G0378; J1644; J1940; J1956; J2543; J3370; J3480; J3490; J7030; J7040; J7050; J7060; J7070